=== PATIENT | female | born 1950 | race Caucasian/White ===

== ENCOUNTER → 2016-11-06 17:00 | Outpatient (CLI) | payer MEDICARE ==
[2015-01-25 12:52] VITALS: BMI 32.8
[~2016-11-06 17:00] MED LIST: ADVAIR 250/501 DISK INH; AMBIEN10 MG PO; FLUTICASONE PRO16 GM; GLIPIZIDE10 MG PO; INSULIN; LEVAQUIN500 MG; LEVAQUIN500 MG PO; MUCINEX600 MG PO; NORCO 10/325 TA1 TA1 PO; PROVENTIL/2.5 MG/3 M NEB; REQUIP5 MG PO; ROBAXIN-750750 MG PO; STERAPRED 5MG 125 MG PO
== END | disposition home or self-care (01) ==
LOC: D.MAMMO 15:15
DX: Z12.31 Encounter for screening mammogram for malignant neoplasm of breast (principal)

== ENCOUNTER 2019-04-06 18:30 | Emergency (ER) | payer MEDICARE ==
[~2019-04-06] VITALS: Ht 160 cm; Wt 72.7 kg
[2019-04-06 18:34] VITALS: Ht 160 cm; Wt 72.7 kg
[2019-04-06] MEDS ORDERED: GYNE-LOTRIMIN-745 GM VG (19:55)
[2019-04-06] MEDS ORDERED: DIFLUCAN150 MG PO (19:55)
[2019-04-06 20:32] VITALS: BP 196/85
== END 2019-04-06 20:15 | disposition home or self-care (01) ==
LOC: D.ER 18:30
DX: B37.2 Candidiasis of skin and nail (principal); B37.49 Other urogenital candidiasis; E11.9 Type 2 diabetes mellitus without complications

== ENCOUNTER 2019-07-01 22:47 | Inpatient (IN) | payer MEDICARE ==
[~2019-07-01] VITALS: Ht 160 cm; Wt 78.5 kg
[~2019-07-01 22:47] MED LIST changes: +DIFLUCAN150 MG PO; -FLUTICASONE PRO16 GM; +FLUTICASONE PRO16 GM INH; +GYNE-LOTRIMIN-745 GM VG
[2019-07-01 23:20] LABS: BASOPHILS 0.1 % (0-2); HEMATOCRIT 37.1 % (36.0-48.0); HEMOGLOBIN 11.8 g/dL (12-16); IMMATURE GRANULOCYTES 0.4 % (0-5); LYMPHOCYTES 18.6 % (15-50); MCH 28.9 pg (26.0-34.0); MCHC 31.8 g/dL (31.0-37.0); MCV 90.9 fL (80.0-100.0); MEAN PLATELET VOLUME 9.9 fL (7.4-10.4); NEUTROPHILS 71.9 % (40-80); RBC 4.08 10x6/uL (4.00-5.40); RDW 14.1 % (11.5-14.5); WBC 15.4 10x3/uL (4.8-10.8)
[2019-07-01 23:23] LABS: PLATELET COUNT 272 10x3/uL (130-400)
[2019-07-01 23:24] LABS: APPEARANCE HAZY (CLEAR); BILIRUBIN NEGATIVE (NEGATIVE); CALC OSMOLALITY 284 mosm/kg (275-300); CALCIUM 8.8 mg/dL (8.5-10.1); CARBON DIOXIDE 28.5 mmol/L (21.0-32.0); CHLORIDE - SERUM 102 mmol/L (98-107); COLOR YELLOW (YELLOW); CREATININE - SERUM 1.9 mg/dL (0.6-1.3); GLUCOSE 151 mg/dL (74-106); GLUCOSE NEGATIVE (NEGATIVE); KETONE NEGATIVE (NEGATIVE); NITRITE NEGATIVE (NEGATIVE); POTASSIUM - SERUM 4.4 mmol/L (3.5-5.1); PROTEIN 1+ mg/dL (NEGATIVE); SODIUM 138 mmol/L (136-145); UREA NITROGEN 29 mg/dL (7-18); UROBILINOGEN NORMAL (NORMAL); eGFR NON AFRICAN AMERICAN 28 mL/min (90-120)
[2019-07-01 23:25] LABS: BACTERIA FEW /hpf (NEGATIVE); EPITHELIAL CELLS 0-5 /hpf (0-5)
[2019-07-01 23:33] LABS: ALBUMIN 3.4 g/dL (3.4-5.0); ALKALINE PHOSPHATASE 116 U/L (46-116); ALT (SGPT) 22 U/L (10-68); BILIRUBIN - TOTAL 0.54 mg/dL (0.2-1.3); PROTEIN - SERUM 7.8 g/dL (6.4-8.2)
[2019-07-01 23:38] LABS: TROPONIN-I < 0.017 ng/mL (0.000-0.060)
[2019-07-02] VITALS (8 sets, daily range): BP systolic 188–236; BP diastolic 71–103; Ht 160 cm; Wt 78.5 kg
--- NOTE | 2019-07-02 02:00 | NUR ---
MD NOTIFIED OF BLOOD PRESSURE, NEW ORDER TO BE GIVEN.
--- NOTE | 2019-07-02 02:26 | NUR ---
RT TO BEDSIDE.
--- NOTE | 2019-07-02 02:55 | NUR ---
ROCEPHIN INFUSION STOPPED AT 0230
--- NOTE | 2019-07-02 03:47 | NUR ---
RECIEVED REPORT FROM RN IN ER. ARRIVED TO FLOOR ON STRETCHER ACCOMPANIED BY STAFF AT 0300. TRANSFERED SELF TO BED. ALERT AND ORIENTED X4. GOOD HISTORIAN. REPORTS GETTING DIZZY AND FALLING THREE TIMES IN THE PAST WEEK. STATES HER BOTTOM WAS SORE. 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 IV TO RIGHT FA WITH NS INFUSING AT 125/HR. NO REDNESS OR SWELLING TO SITE AND DSG INTACT. DENIES ANY NEEDS AT THIS TIME.
--- NOTE | 2019-07-02 07:15 | NUR ---
RECEIVED PT IN BED EYES CLOSED RESP UNLABORED SKIN W/D NAD NOTED
--- NOTE | 2019-07-02 14:22 | NUR ---
PATIENT HAD A PANIC ATTACK INSIDE MRI SCANNER. TOOK PATIENT BACK TO HER ROOM. SAW DR CHILDRESS AND INFORMED HIM THAT PATIENT REFUSED DUE TO A PANIC ATTACK. DR CHILDRESS TOLD PATIENT HE WOULD ORDER MEDS. PATIENT STILL REFUSED.
--- NOTE | 2019-07-02 19:13 | NUR ---
RECIEVED BEDSIDE SHIFT REPORT. ALERT AND ORIENTED X4. UP WITH ASSIST TO B/R. IV TO RIGHT FA WITH NS AT 75CC/HR. FALL PRECAUTIONS IN PLACE. DENIES ANY NEEDS. TELEMETRY IN PLACE.
--- NOTE | 2019-07-02 21:27 | NUR ---
C/O NOT HAVING NASAL SPRAY. REFUSED S/S INSULIN D/T TAKING GLUCOTROL THIS LATE. STATES SHE NORMALLY TAKES IT EARLIER IN THE DAY WITH A MEAL. WHEN GOING TO GIVE HER AN HS SNACK PT WAS IN TEARS. WHEN ASKED WHY SHE STATED SHE WOULD NOT BE ABLE TO BREATH TONIGHT WITH OUT HER MEDICINE. HAVE PAGED REY VELASQUEZ FOR ORDERS.
[2019-07-03 00:35] VITALS: BP 176/76
[2019-07-03 04:00] VITALS: BP 183/83
[2019-07-03 05:28] LABS: BASOPHILS 0.2 % (0-2); EOSINOPHILS 1.9 % (0-7); HEMATOCRIT 32.9 % (36.0-48.0); HEMOGLOBIN 10.4 g/dL (12-16); IMMATURE GRANULOCYTES 0.4 % (0-5); LYMPHOCYTES 17.1 % (15-50); MCH 28.5 pg (26.0-34.0); MCHC 31.6 g/dL (31.0-37.0); MCV 90.1 fL (80.0-100.0); NEUTROPHILS 73.4 % (40-80); PLATELET COUNT 234 10x3/uL (130-400); RBC 3.65 10x6/uL (4.00-5.40); RDW 14.4 % (11.5-14.5)
[2019-07-03 05:31] LABS: WBC 10.7 10x3/uL (4.8-10.8)
[2019-07-03 05:38] LABS: CALCIUM 8.5 mg/dL (8.5-10.1); CARBON DIOXIDE 26.8 mmol/L (21.0-32.0); CHOL - HDL RATIO 2.3 ratio (2.3-4.1); CREATININE - SERUM 1.5 mg/dL (0.6-1.3); POTASSIUM - SERUM 3.8 mmol/L (3.5-5.1)
--- NOTE | 2019-07-03 07:13 | NUR ---
PT RESTING COMFORTABLY IN BED, A/O X4, RESP EVEN AND NONLABORED ON 2L NC. RT FA INFUSING NS AT 75CC/HR. MONITOR SHOWING SR WITH RATE OF 85. PT DNEIES ANY NEEDS AT THIS TIME. CALL LIGHT IN REACH, BED ALARM ON, BEDSIDE RAILS X2, NAD NOTED, WILL CONITNUE PLAN OF CARE.
[2019-07-03 08:03] VITALS: BP 173/89
[2019-07-03 12:02] VITALS: BP 165/70
--- NOTE | 2019-07-03 13:34 | NUR ---
RT FA IV LEAKING. D/C IV WITH CATHETER TIP INTACT. NEW 20G IV STARTED TO LT AC X2 STICKS. IVPB ROCEPHIN HUNG AT THIS TIME. PT DENIES ANY NEEDS AT THIS TIME. CALL LIGHT IN REACH,NAD NOTED, WILL CONTINUE TO MONITOR.
[2019-07-03 16:36] VITALS: BP 165/70
--- NOTE | 2019-07-03 19:15 | NUR ---
RECEIVED REPORT, WILL ASSUME CARE OF PT, DENIES ANY NEEDS AT THIS TIME, BED IS LOW, SRX2, CALL LIGHT IN REACH, WILL CONTINUE PLAN OF CARE
[2019-07-03 20:00] VITALS: BP 185/71
--- NOTE | 2019-07-03 21:03 | NUR ---
PT WANTS TO BE SL-SAYS SHE DOESNT NEED ANY MORE FLUIDS NOW
--- NOTE | 2019-07-04 03:52 | NUR ---
I have reviewed this patient and I concur with the Shift Assessment completed by the Licensed Practical Nurse today this shift.
[2019-07-04 04:00] VITALS: BP 101/51
[2019-07-04 05:37] LABS: BASOPHILS 0.2 % (0-2); EOSINOPHILS 4.4 % (0-7); HEMOGLOBIN 9.9 g/dL (12-16); IMMATURE GRANULOCYTES 0.4 % (0-5); LYMPHOCYTES 17.6 % (15-50); MCH 28.2 pg (26.0-34.0); MCHC 30.9 g/dL (31.0-37.0); MCV 91.2 fL (80.0-100.0); MEAN PLATELET VOLUME 10.2 fL (7.4-10.4); MONOCYTES 7.4 % (2-11); PLATELET COUNT 235 10x3/uL (130-400); RBC 3.51 10x6/uL (4.00-5.40); RDW 14.3 % (11.5-14.5); WBC 9.8 10x3/uL (4.8-10.8)
[2019-07-04 05:44] LABS: ANION GAP 9.8 mmol/L (8-16); CALCIUM 8.7 mg/dL (8.5-10.1); CARBON DIOXIDE 29.1 mmol/L (21.0-32.0); CREATININE - SERUM 1.8 mg/dL (0.6-1.3); POTASSIUM - SERUM 3.9 mmol/L (3.5-5.1)
--- NOTE | 2019-07-04 08:05 | NUR ---
ALERT AND ORIENTED. 02 AT 2 L/M PER NC. UP AB SHAGGY. SL TO LEFT AC. REFUSES TO HAVE IV FLUID HOOKED UP. SR UP WITH CALL LIGHT IN REACH. WILL MONITOR
[2019-07-04 09:00] VITALS: BP 189/80
[2019-07-04 11:46] VITALS: BP 197/79
--- NOTE | 2019-07-04 12:11 | NUR ---
I have reviewed this patient and I concur with the Shift Assessment completed by the Licensed Practical Nurse today this shift.
--- NOTE | 2019-07-04 15:12 | NUR ---
OT NOTE: PT COMPLETED SUPINE TO SIT WITH SBA/CGA. PT COMPLETED SIT TO STAND WITH CGA. PT COMPLETED FACE WASH WITH SET UP. PT COMPLETED UE AROM AXS. PT NOT DIZZY WITH SUPINE TO SIT OR SIT TO STAND. THANK YOU, KELLY BURROWS
[2019-07-04 16:16] VITALS: BP 191/72
[2019-07-04 20:00] VITALS: BP 181/60
[2019-07-05] VITALS: BP 175/72
--- NOTE | 2019-07-05 00:36 | NUR ---
RESTING WITH EYES CLOSED, RESPERATIONS EVEN, NO S/S DISTRESS NOTED.
[2019-07-05 04:25] VITALS: BP 173/62
[2019-07-05 05:21] LABS: BASOPHILS 0.1 % (0-2); EOSINOPHILS 4.3 % (0-7); HEMATOCRIT 32.3 % (36.0-48.0); HEMOGLOBIN 10.1 g/dL (12-16); IMMATURE GRANULOCYTES 0.3 % (0-5); LYMPHOCYTES 17.9 % (15-50); MCH 28.3 pg (26.0-34.0); MCHC 31.3 g/dL (31.0-37.0); MCV 90.5 fL (80.0-100.0); MEAN PLATELET VOLUME 10.1 fL (7.4-10.4); NEUTROPHILS 68.4 % (40-80); PLATELET COUNT 238 10x3/uL (130-400); RBC 3.57 10x6/uL (4.00-5.40); RDW 14.1 % (11.5-14.5); WBC 8.9 10x3/uL (4.8-10.8)
[2019-07-05 05:46] LABS: ANION GAP 11.5 mmol/L (8-16); CALCIUM 8.8 mg/dL (8.5-10.1); CARBON DIOXIDE 28.5 mmol/L (21.0-32.0); CREATININE - SERUM 2.1 mg/dL (0.6-1.3)
--- NOTE | 2019-07-05 07:30 | NUR ---
ALERT AND ORIENTED. TELEMERTY SHOWS SR 93. LEFT AC SL. NOT USING . UP AB SHAGGY. DENIES ANY NEEDS. WILL MONITOR
[2019-07-05 08:00] VITALS: BP 195/82
[2019-07-05 12:00] VITALS: BP 182/76
--- NOTE | 2019-07-05 12:44 | NUR ---
I have reviewed this patient and I concur with the Shift Assessment completed by the Licensed Practical Nurse today this shift.
[2019-07-05 16:00] VITALS: BP 159/77
--- NOTE | 2019-07-05 16:23 | NUR ---
OT NOTE: PT COMPLETED ADL MOB WITH SPV/MOD I. PT COMPLETED BED MOB TASKS WITH MOD I. PT COMPLETED TOILETING TASKS WITH SPV/MOD I. THANK YOU, KELLY BURROWS
[2019-07-05 20:00] VITALS: BP 195/80
--- NOTE | 2019-07-05 21:05 | NUR ---
PT CAME OUT OF THE ROOM YELLING THAT SHE HAS NOT GOTTEN HER INSULIN. NOTIFIED PT THAT I CHECKED HER INSULIN EARLIER WHEN I CAME IN BECAUSE I RECIVED REPORT THAT DIABETIC AND ALSO HAVE A HBP. I TOLD PT I ALWAYS LIKE TO DO MY ASSESSMENT EARLIER BEFORE I ASSUME PT CARE DURING MY SHIFT. BT PT SOUNDED UPSET STATING I AM GIVEN ALL HER MEDICATIONS "WAY TOO LATE." MEANWHILE ALL HER MEDS WHERE GIVEN AT THE SCHEDULED TIME. PT ALSO STATES I SHOULD LEAVE HER AMBIEN IN HER ROOM FOR HER TO TAKE IT WHENEVER SHE WANTS TO. I NOTIFIED PT THAT I CANNOT DO THAT, AND SHE NEEDS TO PUSH THE CALL BOTTON TO NOTIFY ME WHENEVER SHE IS READY TO HER AMBIEN. PTR APPEARS CONTINUOUSLY AGGRAVATED, AFTER NUMEROUS EFFORTS OF CALMING HER. WILL CTM.
[2019-07-06] VITALS: BP 151/61
[2019-07-06 04:00] VITALS: BP 118/67
[2019-07-06 04:26] LABS: BASOPHILS 0.2 % (0-2); EOSINOPHILS 3.5 % (0-7); HEMATOCRIT 32.2 % (36.0-48.0); HEMOGLOBIN 10.2 g/dL (12-16); IMMATURE GRANULOCYTES 0.3 % (0-5); LYMPHOCYTES 16.8 % (15-50); MCH 28.7 pg (26.0-34.0); MCHC 31.7 g/dL (31.0-37.0); MCV 90.4 fL (80.0-100.0); MEAN PLATELET VOLUME 10.4 fL (7.4-10.4); MONOCYTES 8.8 % (2-11); NEUTROPHILS 70.4 % (40-80); PLATELET COUNT 261 10x3/uL (130-400); RBC 3.56 10x6/uL (4.00-5.40); RDW 14.1 % (11.5-14.5); WBC 10.8 10x3/uL (4.8-10.8)
[2019-07-06 05:06] LABS: ANION GAP 12.8 mmol/L (8-16); CALCIUM 8.6 mg/dL (8.5-10.1); CARBON DIOXIDE 28.6 mmol/L (21.0-32.0); POTASSIUM - SERUM 4.4 mmol/L (3.5-5.1)
--- NOTE | 2019-07-06 07:10 | NUR ---
REPORT RECEIVED FROM SECURITIES TRADER AND PATIENT CARE ASSUMED. PATIENT LAYING IN BED ON BACK, AWAKE, ALERT AND ORIENTED X 4. PATIENT DENIES ANY NEEDS OR PAIN. PATIENT IS STABLE AND VSS. WILL CONTINUE WITH PLAN OF CARE. SR UP X 2 BED IN LOW POSITION AND CALL LIGHT IN REACH.
[2019-07-06 08:45] VITALS: BP 162/76
[2019-07-06] MEDS ORDERED: LEVOFLOXACIN500 MG PO (10:11)
[2019-07-06] MEDS ORDERED: PROTONIX40 MG PO (10:11)
[2019-07-06] MEDS ORDERED: LISINOPRIL10 MG PO (10:12)
[2019-07-06] MEDS ORDERED: CARDIZEM60 MG PO (10:12)
[2019-07-06] MEDS ORDERED: LOPRESSOR25 MG PO (10:12)
[2019-07-06] MEDS ORDERED: PRAVACHOL20 MG PO (10:12)
--- NOTE | 2019-07-06 15:46 | NUR ---
OT NOTE: PT COMPLETED DYNAMIC STANDING AXS WITH SPV/MOD I. PT COMPLETED HYGIENE TASKS WITH SPV. PT ANXIOUS TO GO HOME. THANK YOU,KELLY BURROWS
--- NOTE | 2019-07-06 16:38 | MORECARE ---
CASE MANAGEMENT DISCHARGE SUMMARY PATIENT: ZHANG BOWMAN UNIT: [id number] ADM DATE: 07/02/19 AGE: 68 : 48 SEX: F ROOM/BED: D.0834 AUTHOR: CORTES HAUSER PHYSICIAN: REFERRING PHYSICIAN: JAKE CHILDRESS MD DATE OF SERVICE: 07/06/19 Discharge Plan Patient Name: ZHANG BOWMAN Facility: [facility]:[place] : 1950 Planned Disposition: Home Anticipated Discharge Date: 07/06/19 Discharge Date: 07/06/2019 Expected LOS: 4 Initial Reviewer: [email or web address] Initial Review Date: 07/06/2019 Generated: 07/06/19 5:37 pm DCPIA - Discharge Planning Initial Assessment Updated by [email or web address]: Ben Mahmood on 07/06/19 4:36 pm * Is the patient Alert and Oriented? Yes * How many steps to enter\exit or inside your home? * PCP DR. SERRA * Pharmacy [facility] * Preadmission Environment Home with Family * ADLs Independent * Equipment Nebulizer Oxygen * Other Equipment OXYGEN PRN (HOME ONLY) UNKNOWN PROVIDER * List name and contact numbers for known caregivers / representatives who currently or will assist patient after discharge: RAINA MARVIN BRODY, * Verbal permission to speak to the caregivers and representatives has been obtained from the patient. N/A * Community resources currently utilized None * Please name any agencies selected above. NONE * Additional services required to return to the preadmission environment? No * Can the patient safely return to the preadmission environment? Yes * Has this patient been hospitalized within the prior 30 days at any hospital? No Coverage Notice Reviewer: [id number] - Marine Chapa Notice Issued Date-Time: 07/02/2019 13:04 Notice Type: Medicare Outpatient Observation Notice Notice Delivered To: Patient Relationship to Patient: Iron Bender Name: Delivery Method: HAND - Hand Delivered Amy Days: Prior Verbal Notification: Recipient Understood Notice: Recipient Signature: Med Rec Note Co-signed by Attending: Coverage Notice Comment: Patient Name: ZHANG BOWMAN Page [phone] at 1638 All edits/amendments must be made on the electronic document DICTATION DATE: 07/06/191636 ACCOUNTANT MANAGER: KEVIN 07/06/191636 RPT#: [id number] DC DATE:07/06/19 STATUS: DIS IN [facility] [address] [place] [address] END OF REPORT
--- NOTE | 2019-07-06 16:47 | MORECARE ---
CASE MANAGEMENT DISCHARGE SUMMARY PATIENT: ZHANG BOWMAN UNIT: [id number] ADM DATE: 07/02/19 AGE: 68 : 48 SEX: F ROOM/BED: D.5997 AUTHOR: MURTAZA,DOC PHYSICIAN: REFERRING PHYSICIAN: JAKE CHILDRESS MD DATE OF SERVICE: 07/06/19 Discharge Plan Patient Name: ZHANG BOWMAN Facility: [facility]:[place] : 1950 Planned Disposition: Home Anticipated Discharge Date: 07/06/19 Discharge Date: 07/06/2019 Expected LOS: 4 Initial Reviewer: [email or web address] Initial Review Date: 07/06/2019 Generated: 07/06/19 5:46 pm Comments DCP- Discharge Planning Updated by [email or web address]: Ben Mahmood on 07/06/19 3:[address] Patient Name: ZHANG BOWMAN Admission Status: ER Accout number: [id number] Admission Date: 07-02-2019 : 1950 Admission Diagnosis: Attending: JAKE CHILDRESS Current LOS: 4 Anticipated DC Date: 07-06-2019 Planned Disposition: Home Primary Insurance: MEDICARE A & B Discharge Planning Comments: CM MET WITH PT IN ROOM TO DISCUSS DISCHARGE PLANNING AND NEEDS. PT REPORTS LIVING AT HOME INDEPENDENTLY WITH HER DAUGHTER AND SON IN LAW. PT HAS HOME OXYGEN PRN AND NEBULIZER WITH [facility] MEDICAL EQUIPMENT PROVIDER. PT HAS NO OUTSIDE SERVICES ASSISTING IN THE HOME. CM DISCUSSED AVAILABILITY OF HOME HEALTH, REHAB SERVICES AND MEDICAL EQUIPMENT. PT DENIES DISCHARGE NEEDS, REPORTS HER [facility] WILL PICK HER UP FOR DISCHARGE HOME. Supervisor Wool Shearing: Ben Mahmood DCPIA - Discharge Planning Initial Assessment Updated by [email or web address]: Ben Mahmood on 07/06/19 4:36 pm * Is the patient Alert and Oriented? Yes * How many steps to enter\exit or inside your home? * PCP DR. SERRA * Pharmacy [facility] * Preadmission Environment Home with Family * ADLs Independent * Equipment Nebulizer Oxygen * Other Equipment OXYGEN PRN (HOME ONLY) UNKNOWN PROVIDER * List name and contact numbers for known caregivers / representatives who currently or will assist patient after discharge: NOVEMBER MARVIN BRODY, * Verbal permission to speak to the caregivers and representatives has been obtained from the patient. N/A * Community resources currently utilized None * Please name any agencies selected above. NONE * Additional services required to return to the preadmission environment? No * Can the patient safely return to the preadmission environment? Yes * Has this patient been hospitalized within the prior 30 days at any hospital? No Coverage Notice Reviewer: [id number] Ana Chapa Notice Issued Date-Time: 07/02/2019 13:04 Notice Type: Medicare Outpatient Observation Notice Notice Delivered To: Patient Relationship to Patient: Counting Machine Operator Name: Delivery Method: HAND - Hand Delivered Amy Days: Prior Verbal Notification: Recipient Understood Notice: Recipient Signature: Med Rec Note Co-signed by Attending: Coverage Notice Comment: Last DP export: 07/06/19 3:38 Patient Name: ZHANG BOWMAN Page [phone] at 1647 All edits/amendments must be made on the electronic document DICTATION DATE: 07/06/191645 CHICK ROOM SUPERVISOR: KEVIN 07/06/191645 RPT#: [id number] DC DATE:07/06/19 STATUS: DIS IN [facility] [address] [place] [address] END OF REPORT
[2019-07-07 13:10] LABS: AEROBE ID Final report (())
== END 2019-07-06 15:31 | disposition home or self-care (01) | DRG 690 ==
LOC: D.ER 22:47 → OBSVTIME 07-02 01:46 → D.M2 07-02 01:46
PROVIDERS: Family Medicine; ADMIT Internal Medicine Nephrology; ATTEND Internal Medicine Nephrology
DX: N39.0 Urinary tract infection, site not specified (principal); N17.9 Acute kidney failure, unspecified; I16.9 Hypertensive crisis, unspecified; E11.9 Type 2 diabetes mellitus without complications; E66.01 Morbid (severe) obesity due to excess calories; Z68.30 Body mass index [BMI] 30.0-30.9, adult; Z86.73 Personal history of transient ischemic attack (TIA), and cerebral infarction without residual deficits

== ENCOUNTER 2020-03-04 12:27 | Emergency (ER) | payer MEDICARE ==
[~2020-03-04] VITALS: Ht 160 cm; Wt 61.4 kg
[~2020-03-04 12:27] MED LIST changes: +CARDIZEM60 MG PO; +LEVOFLOXACIN500 MG PO; +LISINOPRIL10 MG PO; +LOPRESSOR25 MG PO; +PRAVACHOL20 MG PO; +PROTONIX40 MG PO
[2020-03-04 12:31] VITALS: Ht 160 cm; Wt 61.4 kg
[2020-03-04] MEDS ORDERED: BACTRIM DS TAB1 EAC1 PO (13:43)
[2020-03-04] MEDS ORDERED: DIFLUCAN100 MG PO (13:43)
[2020-03-04 17:33] VITALS: BP 138/74
== END 2020-03-04 14:05 | disposition home or self-care (01) ==
LOC: D.ER 12:27
DX: B35.4 Tinea corporis (principal); E11.9 Type 2 diabetes mellitus without complications; N64.4 Mastodynia; Z79.84 Long term (current) use of oral hypoglycemic drugs

== ENCOUNTER 2020-03-19 23:23 | Inpatient (IN) | payer MEDICARE ==
[~2020-03-19] VITALS: Ht 160 cm; Wt 76.0 kg
[~2020-03-19 23:23] MED LIST changes: +BACTRIM DS TAB1 EAC1 PO; +DIFLUCAN100 MG PO
[2020-03-19] MEDS ORDERED: GLUCOPHAGE500 MG PO (23:40)
--- NOTE | 2020-03-19 23:50 | NUR ---
STROKE [facility] #[id number]
[2020-03-19 23:51] LABS: HEMATOCRIT 32.9 % (36.0-48.0); HEMOGLOBIN 10.6 g/dL (12-16); LYMPHOCYTES 24.2 % (15-50); MCH 27.7 pg (26.0-34.0); MCHC 32.2 g/dL (31.0-37.0); MCV 86.1 fL (80.0-100.0); NEUTROPHILS 70.6 % (40-80); PLATELET COUNT 249 10x3/uL (130-400); RBC 3.82 10x6/uL (4.00-5.40); RDW 15.4 % (11.5-14.5); WBC 8.5 10x3/uL (4.8-10.8)
--- NOTE | 2020-03-19 23:53 | NUR ---
AR SAVES CONTACTED.
[2020-03-20] VITALS (8 sets, daily range): BP systolic 154–190; BP diastolic 51–90; Ht 160 cm; Wt 76.0 kg
[2020-03-20 00:05] LABS: CALC OSMOLALITY 278 mosm/kg (275-300); CALCIUM 9.2 mg/dL (8.5-10.1); CARBON DIOXIDE 25.4 mmol/L (21.0-32.0); CHLORIDE - SERUM 102 mmol/L (98-107); CREATININE - SERUM 2.8 mg/dL (0.6-1.3); GLUCOSE 106 mg/dL (74-106); POTASSIUM - SERUM 5.6 mmol/L (3.5-5.1); SODIUM 135 mmol/L (136-145); UREA NITROGEN 38 mg/dL (7-18); eGFR NON AFRICAN AMERICAN 18 mL/min (90-120)
[2020-03-20 00:06] LABS: APTT 31.1 SECONDS (22.8-39.4); INR 0.88 (0.85-1.17); PROTIME 11.9 SECONDS (11.6-15.0)
[2020-03-20 00:21] LABS: ALBUMIN 3.4 g/dL (3.4-5.0); ALKALINE PHOSPHATASE 105 U/L (30-120); ALT (SGPT) 21 U/L (10-68); BILIRUBIN - TOTAL 0.19 mg/dL (0.2-1.3); CKMB 1.3 U/L (0.0-3.6); CREATINE KINASE 105 UL (21-215); MAGNESIUM - SERUM 2.2 mg/dL (1.8-2.4); PROTEIN - SERUM 7.2 g/dL (6.4-8.2); THYROID STIMULATING HORMONE 1.76 uIU/mL (0.36-3.74); TROPONIN-I < 0.017 ng/mL (0.000-0.060)
--- NOTE | 2020-03-20 01:35 | NUR ---
PT ASSISTED TO BEDSIDE COMMODE.
--- NOTE | 2020-03-20 01:56 | NUR ---
PT C/O ANTERIOR LEFT THIGH PAIN THAT IS WORSE ON MOVEMENT. DESCRIBES IT "WORSE THAN A CRAMP." DISTAL SMC INTACT W/PALPABLE PULSES. MD NOTIFIED. HE STATES HE WILL ORDER X-RAY TO BE DONE ON FLOOR.
--- NOTE | 2020-03-20 02:06 | NUR ---
PT ARRIVED ON UNIT VIA STRETCHER, ESCORTED BY ER NURSE. RADIOLOGY HERE WAITING TO PERFORM LEFT HIP XRAY.
--- NOTE | 2020-03-20 02:30 | NUR ---
PT BATHED AND GOWN PLACED. SHE HAS SEVERE YEAST INFECTION/ REDNESS UNDER BOTH BREASTS AND IN INGUINAL / RUDY AREAS. NYSTATIN HAS BEEN ORDERED. BED ALARM IN USE FOR SAFETY. GRIPPER SOCKS PLACED ON BLE.
[2020-03-20 04:19] LABS: BASOPHILS 0.2 % (0-2); EOSINOPHILS 1.1 % (0-7); HEMATOCRIT 33.6 % (36.0-48.0); HEMOGLOBIN 10.5 g/dL (12-16); IMMATURE GRANULOCYTES 0.1 % (0-5); LYMPHOCYTES 20.3 % (15-50); MCH 27.3 pg (26.0-34.0); MCHC 31.3 g/dL (31.0-37.0); MCV 87.5 fL (80.0-100.0); MEAN PLATELET VOLUME 9.4 fL (7.4-10.4); MONOCYTES 6.9 % (2-11); NEUTROPHILS 71.4 % (40-80); PLATELET COUNT 212 10x3/uL (130-400); RBC 3.84 10x6/uL (4.00-5.40); RDW 15.8 % (11.5-14.5); WBC 8.4 10x3/uL (4.8-10.8)
--- NOTE | 2020-03-20 04:20 | NUR ---
BED ALARM SOUNDING....UPON ENTERING ROOM FOUND PT BACK IN BED...SHE SAID SHE COULDN'T WAIT AND WALKED TO THE RESTROOM TO VOID. STATES THAT IT ISN'T HURTING MUCH IT DID AT HOME TO WALK.
[2020-03-20] MEDS ORDERED: BACTRIM DS TAB1 EAC1 PO (04:41)
[2020-03-20] MEDS ORDERED: NYSTATIN1 PWD TOPICAL (04:41)
[2020-03-20] MEDS ORDERED: GLYBURIDE5 M1 PO (04:42)
[2020-03-20 04:50] LABS: CALCIUM 9.1 mg/dL (8.5-10.1); CARBON DIOXIDE 26.5 mmol/L (21.0-32.0); CHOL - HDL RATIO 2.6 ratio (2.3-4.1); CREATININE - SERUM 2.7 mg/dL (0.6-1.3); LDL-HDL RATIO 1.4 ratio (1.5-3.5); MAGNESIUM - SERUM 2.1 mg/dL (1.8-2.4); PHOSPHOROUS 3.8 mg/dL (2.5-4.9); POTASSIUM - SERUM 5.5 mmol/L (3.5-5.1); THYROID STIMULATING HORMONE 1.56 uIU/mL (0.36-3.74)
--- NOTE | 2020-03-20 05:47 | NUR ---
CALLED DR SUGGS TO ADVISE OF ORDERED CONSULT...REVIEWED PT SYMPTOMS AND TEST RESULTS. RECEIVED ORDER FOR MRI OF BRAIN WITH AND WITHOUT CONTRAST.
--- NOTE | 2020-03-20 07:35 | NUR ---
PATIENT'S BP 190/80 MANUALLY. ELECTRIC MOTOR WINDERS ASSEMBLER [facility] CONSULTANT PAGED.
--- NOTE | 2020-03-20 07:49 | NUR ---
ALERT AND ORIENTED. LUNGS CLEAR BILATERALLY. HEART SOUNDS S1 AND S2 HEARD IN ALL VINSON. BOWEL SOUNDS ACTIVE X 4. IV TO RIGHT HAND PATENT WITHOUT REDNESS. IV TO LEFT AC SL PATENT WITHOUT REDNESS. TELEMETRY IN PLACE SHOWING 74 NORMAL SINUS. BED LOW. BED ALARM ON. CALL CAPELLAN AND PERSONAL ITEMS IN REACH. WILL CONTINUE TO MONITOR.
--- NOTE | 2020-03-20 08:14 | NUR ---
DATE PITTER PAGED SECOND TIME FOR PATIENT'S BP.
--- NOTE | 2020-03-20 09:11 | NUR ---
SPOKE WITH TAMI SENIOR ABOUT GETTING PATIENT PRN BREATHING TX. STATES COMING TO GIVE NWO.
--- NOTE | 2020-03-20 10:08 | NUR ---
Rehab Note- Acute Inpatient Rehab prescreen order received. The patient is a new admit and continues to have an acute work up at this time. Will continue to follow at this time. Thank you for this referral! Rosita White RN Clinical Liaison, [facility]
--- NOTE | 2020-03-20 11:00 | NUR ---
SPRAYER AUTO PARTS IN ROOM MADE AWARE THAT PATIENT UNABLE TO DO ECHO, MRI, OR DOPPLER, D/T PAIN. ORDERS PLACED FOR MENESES AND ONE TIME KAYEXELATE BUT NO PAIN MEDS ORDERED AT THIS TIME.
--- NOTE | 2020-03-20 11:05 | NUR ---
MENESES PLACED PER ORDER WITH [facility] MENESES AND UA SENT TO LAB.
--- NOTE | 2020-03-20 11:17 | NUR ---
PATIENT BP 199/67. PRODUCTION LINE SOLDERER MADE AWARE.
--- NOTE | 2020-03-20 11:20 | NUR ---
NEW ORDER RECEIVED FOR ONE TIME DOSE PAIN MEDICATION FOR PATIENT.
[2020-03-20 11:30] LABS: BILIRUBIN NEGATIVE (NEGATIVE); GLUCOSE NEGATIVE (NEGATIVE); KETONE NEGATIVE (NEGATIVE); NITRITE NEGATIVE (NEGATIVE); UROBILINOGEN NORMAL (NORMAL)
--- NOTE | 2020-03-20 12:26 | NUR ---
PATIENT'S BP 189/74. REY CAMP NOTIFIED. STATES CONSULT CARDIOLOGY.
[2020-03-20 12:34] LABS: CKMB 2.2 U/L (0.0-3.6); CREATINE KINASE 214 UL (21-215)
[2020-03-20 12:35] LABS: TROPONIN-I < 0.017 ng/mL (0.000-0.060)
[2020-03-20 14:52] LABS: CHOL - HDL RATIO 2.7 ratio (2.3-4.1); LDL-HDL RATIO 1.5 ratio (1.5-3.5)
--- NOTE | 2020-03-20 15:17 | NUR ---
SPOKE WITH DR SUGGS WHO STATES ADD MRI LUMBAR SPINE WITHOUT CONTRAST. ORDER PLACED AND MRI NOTIFIED.
--- NOTE | 2020-03-20 15:26 | NUR ---
PATIENT REFUSING MRI. STATES WILL DO CT BUT NOT MRI. MRI STATES WILL CALL DR SUGGS AND CALL NURSE BACK.
--- NOTE | 2020-03-20 15:57 | NUR ---
PATIENT RETURNED FROM CT AND CT STATES UNABLE TO PERFORM CT D/T ANXIETY. STATES PATIENT NEEDS ANXIETY MEDS IF MD WANTS CT. REY KAUR.
--- NOTE | 2020-03-20 16:10 | NUR ---
PATIENT CONTINUES TO REFUSE CT EVEN WITH IV BENDARYL PREMED. REY CHOWDHURY NOTIFIED.
[2020-03-20 17:54] LABS: CKMB 1.9 U/L (0.0-3.6); CREATINE KINASE 221 UL (21-215)
--- NOTE | 2020-03-20 17:57 | NUR ---
PATIENT NOW STATING TO DR SUGGS IN ROOM THAT IS NOT HAVING LEG PAIN ANYMORE.
[2020-03-20 18:07] LABS: TROPONIN-I < 0.017 ng/mL (0.000-0.060)
--- NOTE | 2020-03-20 20:30 | NUR ---
PT LYING IN BED WITHOUT DISTRESS, AOX4. IV RIGHT HAND INFUSING NS @ 75. DENIES PAIN. MENESES IN PLACE. REQUESTING SOMETHING FOR SLEEP AND BREATHING TRX. CALLED [facility] FOR TRX. CALLED [facility] FOR PT HOME MED AMBIEN. [facility] WOULD NOT ORDER STATING WE COULD NOT GIVE HER ANYTHING SEDATIVE AT THIS TIME. PT UPSET AND CRIED STATING SHE WILL NOT GET ANY SLEEP TONIGHT AND WOULD SPEAK WITH DR SERRA IN AM. FSBS 125, NO COVERAGE PER SS. DENIES OTHER NEEDS. CL IN REACH, WILL CTM
[2020-03-20 23:14] LABS: CKMB 1.7 U/L (0.0-3.6); CREATINE KINASE 157 UL (21-215)
[2020-03-20 23:15] LABS: TROPONIN-I < 0.017 ng/mL (0.000-0.060)
[2020-03-21] VITALS: BP 186/89
[2020-03-21 04:00] VITALS: BP 176/95
[2020-03-21 05:51] LABS: ANION GAP 11.3 mmol/L (8-16); CALCIUM 8.9 mg/dL (8.5-10.1); CARBON DIOXIDE 27.2 mmol/L (21.0-32.0); CREATININE - SERUM 2.2 mg/dL (0.6-1.3); PHOSPHOROUS 4.4 mg/dL (2.5-4.9)
[2020-03-21 06:05] LABS: POTASSIUM - SERUM 4.5 mmol/L (3.5-5.1)
--- NOTE | 2020-03-21 06:45 | NUR ---
RESTING IN BED WITH EYES CLOSED. RESPIRATIONS EVEN AND UNLABORED. NO S/S OF ACUTE DISTRESS NOTED. MENESES CATHETER PRESENT. IV TO RIGHT HAND, NS INFUSING @ 75ML/HR. SITE PATENT WITHOUT REDNESS OR SWELLING. ON TELEMETRY 84 SR. REDNESS UNDERNEATH BOTH BREASTS. DENIES ANY NEEDS AT THIS TIME. CALL LIGHT IN REACH. WILL CONTINUE TO MONITOR.
[2020-03-21 07:21] LABS: BASOPHILS 0.5 % (0-2); EOSINOPHILS 3.9 % (0-7); HEMATOCRIT 34.7 % (36.0-48.0); HEMOGLOBIN 10.8 g/dL (12-16); IMMATURE GRANULOCYTES 0.2 % (0-5); LYMPHOCYTES 30.9 % (15-50); MCH 28.1 pg (26.0-34.0); MCHC 31.1 g/dL (31.0-37.0); MEAN PLATELET VOLUME 9.7 fL (7.4-10.4); MONOCYTES 7.5 % (2-11); PLATELET COUNT 218 10x3/uL (130-400); RBC 3.85 10x6/uL (4.00-5.40); RDW 16.3 % (11.5-14.5)
[2020-03-21 07:22] LABS: MCV 90.1 fL (80.0-100.0); WBC 5.8 10x3/uL (4.8-10.8)
[2020-03-21 08:00] VITALS: BP 186/82
--- NOTE | 2020-03-21 09:00 | NUR ---
PATIENT IS WITHOUT NEEDS.CALL LIGHT IN REACH. DOOR OPEN
[2020-03-21 12:00] VITALS: BP 148/69
--- NOTE | 2020-03-21 13:10 | NUR ---
I have reviewed this patient and I concur with the Shift Assessment completed by the Licensed Practical Nurse today this shift.
--- NOTE | 2020-03-21 14:35 | NUR ---
OT NOTE: PT LIEING IN BED. CONTINUES TO REPORT PAIN IN L GROIN AREA WHICH INCREASES WITH MOVEMENT OF L LE. BED MOB WITH MIN ASSIST TO BRING L LE TO EOB. PAIN SEVERE IN SITTING POSITION; ASSISTED WITH SIT TO STAND WITH MIN ASSIST X 2 AND WALKER; AMBULATED A FEW FT WITH WALKER AND CONTINUED REPORT OF PAIN IN LATERAL SIDE OF L HIP AND GROIN AREA. MOD/MAX ASSIST WITH SIT TO SUPINE; SIMPLE GROOMING TASKS WITH SET UP. CINDY SHRESTHA, OTR/L [phone]
[2020-03-21 16:00] VITALS: BP 177/76
--- NOTE | 2020-03-21 18:32 | NUR ---
ALERT AND ORIENTED, SITTING UP IN CHAIR. NO C/O PAIN. NO S/S OF ACUTE DISTRESS NOTED. DENIES ANY NEEDS AT THIS TIME. CALL LIGHT IN REACH. WILL CONTINUE TO MONITOR.
[2020-03-21 20:00] VITALS: BP 168/69
--- NOTE | 2020-03-21 20:00 | NUR ---
PT SITTING UP IN BED WITHOUT DISTRESS, AOX4. IV RIGHT HAND INFUSING NS @ 30. UP AD SHAGGY TO BATHROOM WITHOUT WEAKNESS OR PAIN. DENIES NEEDS AT THIS TIME. CL IN REACH, WILL CTM
[2020-03-22] VITALS: BP 183/80
[2020-03-22 04:00] VITALS: BP 196/98
[2020-03-22 05:20] LABS: BASOPHILS 0.5 % (0-2); EOSINOPHILS 3.5 % (0-7); HEMATOCRIT 33.5 % (36.0-48.0); HEMOGLOBIN 10.6 g/dL (12-16); IMMATURE GRANULOCYTES 0.2 % (0-5); LYMPHOCYTES 34.5 % (15-50); MCH 27.7 pg (26.0-34.0); MCHC 31.6 g/dL (31.0-37.0); MEAN PLATELET VOLUME 9.3 fL (7.4-10.4); MONOCYTES 7.7 % (2-11); NEUTROPHILS 53.6 % (40-80); PLATELET COUNT 211 10x3/uL (130-400); RBC 3.83 10x6/uL (4.00-5.40); RDW 15.8 % (11.5-14.5); WBC 6.4 10x3/uL (4.8-10.8)
[2020-03-22 05:29] LABS: MCV 87.5 fL (80.0-100.0)
[2020-03-22 05:42] LABS: ANION GAP 8.7 mmol/L (8-16); CARBON DIOXIDE 29.4 mmol/L (21.0-32.0); CREATININE - SERUM 2.3 mg/dL (0.6-1.3); POTASSIUM - SERUM 4.1 mmol/L (3.5-5.1)
--- NOTE | 2020-03-22 08:09 | NUR ---
PT RESTING QUIETLY IN BED. RESP EVEN AND UNLABORED. DENIES PAIN AT THIS TIME. TELEMETRY IN PLACE AT THIS TIME. IV TO RIGHT HAND WITH NS @ 30ML/HR INFUSING VIA PUMP. SITE WITHOUT REDNESS OR EDEMA. AM MEDICATIONS ADMINISTERED WITH BP MEDICATIONS. DENIES FURTHER NEEDS AT THIS TIME. CL WITHIN REACH. ENCOURAGED TO CALL WITH NEEDS. CONTINUE POC
[2020-03-22 09:03] VITALS: BP 189/87
--- NOTE | 2020-03-22 12:55 | NUR ---
OT NOTE: PT DOING MUCH BETTER TODAY. REPORTED THAT SHE WAS NO LONGER HAVING PAIN TO R GROIN AREA. PERFORMED BED MOB WITHOUT ASSIST; AMB TO BATHROOM WITH WARDROBE SPECIALIST; TOILET TRANSFER WITH CGA; TOILET HYGIENE WITH SET UP; AMB TO SINK AND WAS ABLE TO PERFORM SEVERAL GROOMING TASKS IN STANDING WITH GOOD STATIC BALANCE AND MODERATE STANDING TOLERANCE. PT STATED THAT SHE WAS ATTEMPTING TO CALL HER DTR TO BRING HER DENTURES. PT AMB AROUND ROOM WHILE HOLDING ON TO IV POLE; FUNCTIONAL TRASNFERS WITH CGA; ABLE TO DEMONSTRATE UE/LE EXS WHILE SITTING UP IN CHAIR. CINDY SHRESTHA, OTR/L [phone]
[2020-03-22 13:00] VITALS: BP 172/84
--- NOTE | 2020-03-22 14:02 | MORECARE ---
CASE MANAGEMENT DISCHARGE SUMMARY PATIENT: ZHANG BOWMAN UNIT: [id number] ADM DATE: 03/20/20 AGE: 69 : 48 SEX: F ROOM/BED: D.2227 AUTHOR: CORTES HAUSER PHYSICIAN: REFERRING PHYSICIAN: MAGUI SERRA MD DATE OF SERVICE: 03/22/20 Discharge Plan Patient Name: ZHANG BOWMAN Facility: [facility]:[place] : 1950 Planned Disposition: Home Anticipated Discharge Date: Discharge Date: Expected LOS: Initial Reviewer: [email or web address] Initial Review Date: 03/22/2020 Generated: 03/22/20 3:01 pm Comments DCP- Discharge Planning Updated by [email or web address]: Nydia Reich on 03/22/20 1:[address] Patient Name: ZHANG BOWMAN Admission Status: ER Accout number: [id number] Admission Date: 03-20-2020 : 1950 Admission Diagnosis:WEAKNESS Attending: KURTIS SERRA Current LOS: 2 Anticipated DC Date: Planned Disposition: Home Primary Insurance: MEDICARE A & B Discharge Planning Comments: CM met with patient at bedside after explaining CM role and obtaining verbal consent. CM discussed availability / needs of home health, REHAB and medical equipment. PATIENT STATES PLANS TO DC TO HOME WITH HER FAMILY. HAS AN EXCELLENT SUPPORT SYSTEM. IS NOT INTERESTED IN HH OR REHAB. CM TO FOLLOW AND ASSIST NEEDED. Elementary Classroom Teacher: Nydia Reich DCPIA - Discharge Planning Initial Assessment Updated by [id number]: Nydia Reich on 03/22/20 2:02 pm * Is the patient Alert and Oriented? Yes * PCP MARYSE * [facility] * Preadmission Environment Home with Family * ADLs Independent * Other Equipment 02, [facility] WITH [facility] * Community resources currently utilized None * Additional services required to return to the preadmission environment? No * Can the patient safely return to the preadmission environment? Yes * Has this patient been hospitalized within the prior 30 days at any hospital? No Patient Name: ZHANG BOWMAN Page [id number] at 1402 All edits/amendments must be made on the electronic document DICTATION DATE: 03/22/201401 TRIM SAWYER: KEVIN 03/22/201401 RPT#: [id number] DC DATE: STATUS: ADM IN [facility] [address] [facility] [place] [address] END OF REPORT
--- NOTE | 2020-03-22 15:26 | EC ---
PATIENT:ZHANG BOWMAN DATE OF SERVICE: 03/20/20 SEX: F MEDICAL RECORD: [id number] DATE OF : [birth year] LOCATION:[facility] [place] AGE OF PATIENT: 69 ADMISSION DATE: 03/20/20 REFERRING PHYSICIAN: INTERPRETING PHYSICIAN: CAROL LAGUERRE MD ECHOCARDIOGRAM REPORT ECHO CHARGES 4 ECHO COMPLETE Date: 03/20/20 CLINICAL DIAGNOSIS: OLD CVA, NEW ONSET FOCAL DIFICITS, R/O CARDIOEMBOL ECHOCARDIOGRAPHIC MEASUREMENTS (adult normal given) AC root (d.<3.7cm) 2.5 cm LV Septum d (<1.2 cm> 0.8 cm Valve Excursion 1.4 cm LV Septum (systole) 2.0 cm Left Atria (s.<4.0cm> 3.4 cm LVPW d(<1.2cm) 1.1 cm RV (d.<2.3cm) 2.3 cm LVPW (sytole) 1.2 cm LV diastole(<5.6CM) 4.8 cm MV E-F(>70mm/sec) cm LV systole 3.2 cm LVOT Diameter 1.8 cm MV exc.(>10mm) cm Est.ejection fraction (50-75%) % DOPPLER: LVIT cm/sec A 90 cm/sec E 83 cm/sec LA cm/sec RVSP 21.7 mmHg LVOT 87 cm/sec AOP1/2T m/s Asc. Ao 146 cm/sec RVOT 102 cm/sec RA cm/sec PA 76 cm/sec AV Gradient Peak 8.5 mmHg AV Mean 5.1 mmHg AV Area 1.7 cm MV Gradient Peak 4.6 mmHg MV Mean 2.3 mmHg MV Area cm COMMENTS: Coil Cutter: 5 [facility] Hvac Sales Representative: 3 Dr. Garcia TAPE# PACS Pericardial Effusion N DATE OF SERVICE: 03/20/2020 Adequate 2D, color flow imaging, spectral Doppler and M-mode. No LVH. LV internal dimensions are normal. Wall motion is normal. EF is greater than or equal to equal to 55%. Aortic valve is tricuspid. No evidence of stenosis by Doppler interrogation. Left atrium is normal. Mitral valve shows no prolapse. Trace MR. Right-sided chambers grossly normal. Trace TR. TRANSINT:[id number] Voice Confirmation ID: [id number] DOCUMENT ID: [id number] ECHOCARDIOGRAM REPORT [id number] ZHANG BOWMAN,CAROL Simon MD at 1526 CC: [id number] DICTATION DATE: 03/20/20 1554 NURSING EDUCATION CONSULTANT: 03/20/20 2258 ADM IN [place] [id number] [place] [address]
[2020-03-22] MEDS ORDERED: PLAVIX75 MG PO (15:30)
[2020-03-22] MEDS ORDERED: HYDRALAZINE HCL50 MG PO (15:31)
[2020-03-22] MEDS ORDERED: NORVASC10 MG PO (15:31)
[2020-03-22] MEDS ORDERED: TOPROL XL50 MG PO (15:31)
[2020-03-22] MEDS ORDERED: LIPITOR40 MG PO (16:26)
--- NOTE | 2020-03-22 17:00 | NUR ---
PT PROVIDED DISCHARGE PAPERWORK WITH NEW PRESCRIPTIONS. DISCUSSED AT LENGTH NEW PRESCRIPTION, USE, DOSAGE AND TIMES TO TAKE MEDICATIONS. INFORMED PT OF PRESCRIPTIONS BEING SENT TO [facility] [address]. PT VOICED USING [facility], BUT SHE COULD GO TO [facility] AND ELEVATOR REPAIR MECHANIC MEDICATIONS. INFORMED OF APPOINTMENTS FOR FOLLOW UPS. IV DISCONTINUED TO RIGHT HAND, CATH INTACT
[2020-03-22 17:36] VITALS: BP 170/78
--- NOTE | 2020-03-22 17:38 | NUR ---
PT TAKEN OUT TO PRIVATE CAR VIA W/C WITH ALL PERSONAL POSESSIONS.
--- NOTE | 2020-03-22 18:26 | NUR ---
OT NOTE: PT COMPLETED FACE AND HAND HYGIENE WITH SETUP. PT COMPLETED UE AROM TOLERATED. [phone] THANK YOU,KELLY BURROWS
--- NOTE | 2020-03-23 17:00 | MORECARE ---
CASE MANAGEMENT DISCHARGE SUMMARY PATIENT: ZHANG BOWMAN UNIT: [id number] ADM DATE: 03/20/20 AGE: 69 : 48 SEX: F ROOM/BED: D.2227 AUTHOR: CORTES HAUSER PHYSICIAN: REFERRING PHYSICIAN: MAGUI SERRA MD DATE OF SERVICE: 03/23/20 Discharge Plan Patient Name: ZHANG BOWMAN Facility: [facility]:[place] : 1950 Planned Disposition: Home Anticipated Discharge Date: Discharge Date: 03/22/2020 Expected LOS: Initial Reviewer: [email or web address] Initial Review Date: 03/22/2020 Generated: 03/23/20 6:00 pm Comments DCP- Discharge Planning Updated by [email or web address]: Nydia Reich on 03/22/20 1:[address] Patient Name: ZHANG BOWMAN Admission Status: ER Accout number: [id number] Admission Date: 03-20-2020 : 1950 Admission Diagnosis:WEAKNESS Attending: KURTIS SERRA Current LOS: 2 Anticipated DC Date: Planned Disposition: Home Primary Insurance: MEDICARE A & B Discharge Planning Comments: CM met with patient at bedside after explaining CM role and obtaining verbal consent. CM discussed availability / needs of home health, REHAB and medical equipment. PATIENT STATES PLANS TO DC TO HOME WITH HER FAMILY. HAS AN EXCELLENT SUPPORT SYSTEM. IS NOT INTERESTED IN HH OR REHAB. CM TO FOLLOW AND ASSIST NEEDED. Stock Handler Floorperson: Nydia Reich DCPIA - Discharge Planning Initial Assessment Updated by [email or web address]: Nydia Reich on 03/22/20 2:02 pm * Is the patient Alert and Oriented? Yes * PCP MARYSE * [facility] * Preadmission Environment Home with Family * ADLs Independent * Other Equipment 02, [employer] [facility] * Community resources currently utilized None * Additional services required to return to the preadmission environment? No * Can the patient safely return to the preadmission environment? Yes * Has this patient been hospitalized within the prior 30 days at any hospital? No Last DP export: 03/22/20 1:02 p Patient Name: ZHANG BOWMAN Page [phone] at 1700 All edits/amendments must be made on the electronic document DICTATION DATE: 03/23/201699 FINISH MENDER: KEVIN 03/23/201699 RPT#: [id number] DC DATE:03/22/20 STATUS: DIS IN [facility] [address] [facility] [place] [address] END OF REPORT
== END 2020-03-22 17:46 | disposition home or self-care (01) | DRG 65 ==
LOC: D.ER 23:23 → D.MS 03-20 00:25
PROVIDERS: Emergency Medicine; Family Medicine; Internal Medicine Interventional Cardiology; ADMIT Emergency Medicine; ATTEND Emergency Medicine
DX: I63.81 Other cerebral infarction due to occlusion or stenosis of small artery (principal); E87.1 Hypo-osmolality and hyponatremia; N17.9 Acute kidney failure, unspecified; B37.2 Candidiasis of skin and nail; J44.9 Chronic obstructive pulmonary disease, unspecified; E78.5 Hyperlipidemia, unspecified; E11.40 Type 2 diabetes mellitus with diabetic neuropathy, unspecified; G89.29 Other chronic pain; M54.9 Dorsalgia, unspecified; E11.22 Type 2 diabetes mellitus with diabetic chronic kidney disease; I12.9 Hypertensive chronic kidney disease with stage 1 through stage 4 chronic kidney disease, or unspecified chronic kidney disease; N18.9 Chronic kidney disease, unspecified; G83.14 Monoplegia of lower limb affecting left nondominant side; D63.1 Anemia in chronic kidney disease; Z86.73 Personal history of transient ischemic attack (TIA), and cerebral infarction without residual deficits

== ENCOUNTER 2020-03-29 23:19 | Inpatient (IN) | payer MEDICARE ==
[~2020-03-29] VITALS: Ht 160 cm; Wt 77.5 kg
[~2020-03-29 23:19] MED LIST changes: +GLUCOPHAGE500 MG PO; +GLYBURIDE5 M1 PO; +HYDRALAZINE HCL50 MG PO; +LIPITOR40 MG PO; +NORVASC10 MG PO; +NYSTATIN1 PWD TOPICAL; +PLAVIX75 MG PO; +TOPROL XL50 MG PO
[2020-03-30] VITALS (8 sets, daily range): BP systolic 138–216; BP diastolic 62–90; BMI 30.3
[2020-03-30 00:03] LABS: HEMATOCRIT 32.6 % (36.0-48.0); HEMOGLOBIN 10.4 g/dL (12-16); LYMPHOCYTES 26.6 % (15-50); MCH 27.9 pg (26.0-34.0); MCHC 31.9 g/dL (31.0-37.0); MCV 87.4 fL (80.0-100.0); MEAN PLATELET VOLUME 9.3 fL (7.4-10.4); NEUTROPHILS 65.4 % (40-80); PLATELET COUNT 225 10x3/uL (130-400); RBC 3.73 10x6/uL (4.00-5.40); RDW 15.2 % (11.5-14.5); WBC 8.8 10x3/uL (4.8-10.8)
[2020-03-30 00:07] LABS: CALC OSMOLALITY 285 mosm/kg (275-300); CALCIUM 8.4 mg/dL (8.5-10.1); CARBON DIOXIDE 29.4 mmol/L (21.0-32.0); CHLORIDE - SERUM 102 mmol/L (98-107); GLUCOSE 156 mg/dL (74-106); POTASSIUM - SERUM 4.7 mmol/L (3.5-5.1); SODIUM 137 mmol/L (136-145); UREA NITROGEN 38 mg/dL (7-18); eGFR NON AFRICAN AMERICAN 26 mL/min (90-120)
[2020-03-30 00:12] LABS: APTT 25.1 SECONDS (22.8-39.4); INR 0.99 (0.85-1.17); PROTIME 13.1 SECONDS (11.6-15.0)
[2020-03-30 00:23] LABS: ALBUMIN 3.3 g/dL (3.4-5.0); ALKALINE PHOSPHATASE 87 U/L (30-120); ALT (SGPT) 28 U/L (10-68); BILIRUBIN - TOTAL 0.47 mg/dL (0.2-1.3); CKMB 0.7 U/L (0.0-3.6); CREATINE KINASE 86 UL (21-215); PROTEIN - SERUM 6.9 g/dL (6.4-8.2)
[2020-03-30 00:26] LABS: TROPONIN-I < 0.017 ng/mL (0.000-0.060)
[2020-03-30 00:33] LABS: BILIRUBIN NEGATIVE (NEGATIVE); GLUCOSE NEGATIVE (NEGATIVE); KETONE NEGATIVE (NEGATIVE); NITRITE POSITIVE (NEGATIVE); UROBILINOGEN NORMAL (NORMAL)
[2020-03-30 00:36] LABS: BACTERIA MANY /hpf (NEGATIVE); RED CELLS - URINE 0-5 /hpf (0-5)
[2020-03-30 00:37] LABS: EPITHELIAL CELLS 0-5 /hpf (0-5)
[2020-03-30 01:55] LABS: % SATURATION 9 % (15-55); IRON 31 ug/dl (35-150); TOTAL IRON BIND CAPACITY 317 ug/dl (260-445); UNSAT IRON BIND CAPACITY 286 ug/dl (150-375)
--- NOTE | 2020-03-30 04:00 | NUR ---
RECEIVED PT TO FLOOR VIA STRETCHER. PT AMBULATORY. WALKS TO BATHROOM INDEPENDENTLY. PT HAS VOIDING FREQUENCY. YEASTY RASH IN GROIN/PERIAREA. ALERT AND ORIENTED. BP LYING 216/73, SITTING 187/73, STANDING 189/75 - REPORTED BP'S TO REY KANG. GAVE APRESOLINE 10 MG IV PUSH AND RESTARTED HOME BP MEDS FOR AM. HISTORY AND HOME MEDS REVIEWED. NO OTHER NEEDS. WILL REASSESS AND CONTINUE TO MONITOR.
--- NOTE | 2020-03-30 10:10 | NUR ---
Rehab Note- Acute Inpatient REhab prescreen order received. THe patient has pending PT, OT, & ST Evals at this time. Will follow to see her functional level at this time. Thank you for this referral! Rosita White RN CLinical Liaison, [facility] Rehab
--- NOTE | 2020-03-30 12:26 | NUR ---
PATIENT IN BED EATING. DENIES PAIN OR NEEDS. ROOM DECLUTTERED PER PATIENT REQUEST. BED LOW POSITION, CALL LIGHT IN REACH. WILL CONTINUE TO MONITOR.
--- NOTE | 2020-03-30 15:38 | NUR ---
OT NOTE: PT COMPLETED SUPINE TO SIT WITH SBA. PT COMPLETED SIT TO STAND WITH CGA. PT COMPLETED UE AROM WITH FUNCTIONAL TASKS. THANK YOU,KELLY BURROWS
--- NOTE | 2020-03-30 15:55 | NUR ---
REHAB PRESCREENING Rehab referral received and chart reviewed. PT and OT have evaluated this patient. I spoke with Ms. Guillen regarding rehab for strengthening and conditioning. She was very clear that she felt she was doing pretty good and was not interested in rehab. Thank you for this referral! Oralia Miranda, SUPERINTENDENT TESTS Rehab PD
[2020-03-31] VITALS: BP 186/66
[2020-03-31 04:00] VITALS: BP 180/78
[2020-03-31 06:35] LABS: BASOPHILS 0.2 % (0-2); HEMATOCRIT 31.9 % (36.0-48.0); HEMOGLOBIN 9.7 g/dL (12-16); IMMATURE GRANULOCYTES 0.1 % (0-5); LYMPHOCYTES 24.1 % (15-50); MCH 27.2 pg (26.0-34.0); MCHC 30.4 g/dL (31.0-37.0); MEAN PLATELET VOLUME 9.7 fL (7.4-10.4); MONOCYTES 6.8 % (2-11); NEUTROPHILS 64.8 % (40-80); PLATELET COUNT 228 10x3/uL (130-400); RBC 3.57 10x6/uL (4.00-5.40); RDW 16.2 % (11.5-14.5); WBC 8.4 10x3/uL (4.8-10.8)
[2020-03-31 06:51] LABS: MCV 89.4 fL (80.0-100.0)
[2020-03-31 07:04] LABS: ALBUMIN 2.8 g/dL (3.4-5.0); ANION GAP 9.7 mmol/L (8-16); BILIRUBIN - TOTAL 0.27 mg/dL (0.2-1.3); CALCIUM 7.7 mg/dL (8.5-10.1); CARBON DIOXIDE 28.1 mmol/L (21.0-32.0); CREATININE - SERUM 1.9 mg/dL (0.6-1.3); POTASSIUM - SERUM 4.8 mmol/L (3.5-5.1); PROTEIN - SERUM 5.9 g/dL (6.4-8.2)
--- NOTE | 2020-03-31 09:15 | NUR ---
PT SITTING UP IN BED, A&O X4. DENIES PAIN. PIV IN RIGHT FOREARM, PATENT, NO REDNESS OR SWELLING. O2 VIA NC 2L, SAT 97%. PT ABLE TO AMBULATE WITH NO ASSIST. TELEMETRY IN PLACE, 100 SR. PT HAS REDNESS AND YEAST IN LOWER PERIAREA, APPLIED NYST POWDER. PT HAS BRUISES ON UPPER EXTREMITIES. EDUCATED PT ON NEED FOR STOOL SAMPLE, PROVIDED COLLECTION HAT. EDUCATED PT ON CL AND NEEDS, VERBALIZED UNDERSTANDING. BED LOW, RAILS X2. CL IN REACH. WILL CONTINUE TO MONITOR.
[2020-03-31 09:49] VITALS: BP 162/66
--- NOTE | 2020-03-31 12:15 | NUR ---
PT SITTING UP IN BED, REPORTS STOOL SPEICMEN IN COLLECTION HAT, COLLECTED AND SENT TO LAB. PT DENIES FURTHER NEEDS.
[2020-03-31 13:58] VITALS: BP 171/69
--- NOTE | 2020-03-31 15:00 | NUR ---
PERFORMED PERICARE, APPLIED NYST POWDER TO PERIAREA. PT DENIES FURTHER NEEDS.
[2020-03-31 18:04] VITALS: BP 160/62
[2020-03-31 20:56] VITALS: BP 187/73
--- NOTE | 2020-03-31 23:41 | NUR ---
BP 183/70 - GAVE APRESOLINE 10 MG IV PUSH. NO OTHER NEEDS. ASSESSMENT COMPLETE PER FLOW-SHEET. WILL REASSESS AND CONTINUE TO MONITOR.
[2020-04-01 00:01] VITALS: BP 183/70
[2020-04-01 04:12] VITALS: BP 170/64
[2020-04-01 07:06] LABS: BASOPHILS 0.4 % (0-2); EOSINOPHILS 3.1 % (0-7); HEMATOCRIT 32.6 % (36.0-48.0); IMMATURE GRANULOCYTES 0.3 % (0-5); MCH 27.2 pg (26.0-34.0); MCHC 30.7 g/dL (31.0-37.0); MCV 88.8 fL (80.0-100.0); MEAN PLATELET VOLUME 9.5 fL (7.4-10.4); MONOCYTES 7.2 % (2-11); PLATELET COUNT 209 10x3/uL (130-400); RBC 3.67 10x6/uL (4.00-5.40)
[2020-04-01 07:34] LABS: ALBUMIN 2.9 g/dL (3.4-5.0); ANION GAP 11.9 mmol/L (8-16); BILIRUBIN - TOTAL 0.26 mg/dL (0.2-1.3); CALCIUM 8.3 mg/dL (8.5-10.1); CARBON DIOXIDE 25.2 mmol/L (21.0-32.0); CREATININE - SERUM 1.8 mg/dL (0.6-1.3); MAGNESIUM - SERUM 1.9 mg/dL (1.8-2.4); POTASSIUM - SERUM 4.1 mmol/L (3.5-5.1); PROTEIN - SERUM 6.5 g/dL (6.4-8.2)
[2020-04-01 08:43] VITALS: BP 174/67
[2020-04-01 09:37] LABS: EOSINOPHILS 9 % (0-7); LYMPHOCYTES 10 % (15-50); NEUTROPHILS 78 % (40-80); PLATELET ESTIMATE NORMAL; POIKILOCYTOSIS OCC; POLYCHROMASIA OCC; ROULEAUX OCC
--- NOTE | 2020-04-01 11:45 | NUR ---
ASSESSMENT PER FLOW SHEET. PATIENT IS WITHOUT DISTRESS.CALL LIGHT IN REACH
[2020-04-01 13:17] VITALS: BP 148/65
[2020-04-01 18:52] VITALS: BP 152/63
[2020-04-01 22:01] VITALS: BP 168/57
[2020-04-02 03:55] VITALS: BP 193/71
[2020-04-02 05:11] LABS: BASOPHILS 0.3 % (0-2); EOSINOPHILS 4.6 % (0-7); HEMATOCRIT 31.8 % (36.0-48.0); HEMOGLOBIN 9.9 g/dL (12-16); IMMATURE GRANULOCYTES 0.1 % (0-5); MCH 27.4 pg (26.0-34.0); MCHC 31.1 g/dL (31.0-37.0); MCV 88.1 fL (80.0-100.0); MEAN PLATELET VOLUME 9.5 fL (7.4-10.4); MONOCYTES 8.2 % (2-11); NEUTROPHILS 63.8 % (40-80); PLATELET COUNT 211 10x3/uL (130-400); RBC 3.61 10x6/uL (4.00-5.40)
[2020-04-02 05:31] LABS: ALBUMIN 2.7 g/dL (3.4-5.0); ANION GAP 10.1 mmol/L (8-16); BILIRUBIN - TOTAL 0.35 mg/dL (0.2-1.3); CALCIUM 8.1 mg/dL (8.5-10.1); CARBON DIOXIDE 27.9 mmol/L (21.0-32.0); CREATININE - SERUM 1.7 mg/dL (0.6-1.3); MAGNESIUM - SERUM 1.9 mg/dL (1.8-2.4); PROTEIN - SERUM 6.3 g/dL (6.4-8.2)
[2020-04-02 06:01] VITALS: BP 159/51
[2020-04-02 09:10] VITALS: BP 175/63
--- NOTE | 2020-04-02 09:51 | EC ---
PATIENT:ZHANG BOWMAN DATE OF SERVICE: 03/30/20 SEX: F MEDICAL RECORD: [id number] DATE OF : [birth year] LOCATION:D.[facility] AGE OF PATIENT: 69 ADMISSION DATE: 03/30/20 REFERRING PHYSICIAN: INTERPRETING PHYSICIAN: CAROL LAGUERRE MD ECHOCARDIOGRAM REPORT ECHO CHARGES 5 ECHO LIMITED Date: 03/30/20 CLINICAL DIAGNOSIS: PRESYNCOPE ECHOCARDIOGRAPHIC MEASUREMENTS (adult normal given) AC root (d.<3.7cm) 0 cm LV Septum d (<1.2 cm> 0 cm Valve Excursion 0 cm LV Septum (systole) 0 cm Left Atria (s.<4.0cm> 0 cm LVPW d(<1.2cm) 0 cm RV (d.<2.3cm) 0 cm LVPW (sytole) 0 cm LV diastole(<5.6CM) 0 cm MV E-F(>70mm/sec) 0 cm LV systole 0 cm LVOT Diameter 0 cm MV exc.(>10mm) 0 cm Est.ejection fraction (50-75%) % DOPPLER: LVIT 0 cm/sec A 0 cm/sec E 0 cm/sec LA 0 cm/sec RVSP 14.6 mmHg LVOT 0 cm/sec AOP1/2T m/s Asc. Ao 0 cm/sec RVOT 0 cm/sec RA 0 cm/sec PA 0 cm/sec AV Gradient Peak 0 mmHg AV Mean 0 mmHg AV Area 0 cm MV Gradient Peak 0 mmHg MV Mean 0 mmHg MV Area 0 cm COMMENTS: Bone Worker: [facility] Housekeeping Staff: 3 Dr. Garcia TAPE# PACS Pericardial Effusion N DATE OF SERVICE: Limited study includes 2D, color flow. Grossly LVH is present. LV internal dimensions are normal. Wall motion is normal. EF is greater than or equal to 55%. Aortic valve is tricuspid with good valve excursion. No significant AI. Left atrium grossly appears normal. Mitral valve shows no prolapse. Trace MR. Right-sided chambers are grossly normal. Mild TR. ECHOCARDIOGRAM REPORT [id number] ZHANG BOWMAN TRANSINT:[id number] Voice Confirmation ID: [id number] DOCUMENT ID: [id number] CAROL LAGUERRE MD at 0951 CC: [id number] DICTATION DATE: 03/30/20 1128 SUPERVISOR TRANSFERRING AND BOXING: 03/30/202124 ADM IN [facility] [address] [id number]
[2020-04-02 11:54] VITALS: BP 117/69
--- NOTE | 2020-04-02 12:35 | NUR ---
PATIENT BACK TO BED FROM BATHROOM. DENIES PAIN OR NEEDS AT THIS TIME. BED LOW POSITION, CALL LIGHT IN REACH, WILL CONTINUE TO MONITOR.
[2020-04-02 13:25] VITALS: Ht 160 cm; Wt 77.5 kg
--- NOTE | 2020-04-02 13:37 | NUR ---
NEW IV STARTED TO THE RIGHT ARM, 22 G. REMOVED THE OLD IV FROM THE RIGHT ARM. THE CALL LIGHT IS WITHIN REACH.
[2020-04-02 16:22] VITALS: BP 164/67
[2020-04-02 20:00] VITALS: BP 151/67
--- NOTE | 2020-04-02 22:08 | NUR ---
OT NOTE:(AM) PT COMPLETED SUPINE TO SIT WITH CGA. PT COMPLETED SIT TO STAND WITH CGA. PT COMPLETED ADL MOB WITH CGA. PT COMPLETED FACE AND HAND HYGIENE WITH SETUP AT EOB.(PM) PT COMPLETED BED MOB TASKS WITH CGA/SBA. [phone] THANK YOU,KELLY BURROWS
[2020-04-03] VITALS: BP 189/67
--- NOTE | 2020-04-03 02:59 | NUR ---
REC'D WALKING ROUNDS CHGE OF SHIFT IN BED WATCHING TV.HS MEDS GIVEN REQUESTED.STATES WANT MY SNACK NOW EXPLAINED SOON GLUCOSE METER AVAILABLE WILL GET FSBS THEN SNACK SO CAN GET ACCURATE READING. STATES WANT MY SNACK NOW,CURSED SECOND NURSE.STATES YOU'RE LYING.EXPLAINED THAT'S NOT TRUE.VERY ARGUMENTATIVE.WILL CONTINUE TO MONITOR FOR ANY CHGES AND FOLLOW CURRENT PLAN OF CARE.
[2020-04-03 04:00] VITALS: BP 107/44
[2020-04-03 05:37] LABS: BASOPHILS 0.2 % (0-2); EOSINOPHILS 2.4 % (0-7); HEMATOCRIT 30.7 % (36.0-48.0); HEMOGLOBIN 9.6 g/dL (12-16); IMMATURE GRANULOCYTES 0.4 % (0-5); LYMPHOCYTES 12.6 % (15-50); MCH 27.6 pg (26.0-34.0); MCHC 31.3 g/dL (31.0-37.0); MCV 88.2 fL (80.0-100.0); MEAN PLATELET VOLUME 9.6 fL (7.4-10.4); MONOCYTES 6.3 % (2-11); NEUTROPHILS 78.1 % (40-80); PLATELET COUNT 209 10x3/uL (130-400); RBC 3.48 10x6/uL (4.00-5.40)
[2020-04-03 05:40] LABS: WBC 9.6 10x3/uL (4.8-10.8)
[2020-04-03 05:54] LABS: ALBUMIN 2.7 g/dL (3.4-5.0); ANION GAP 11.6 mmol/L (8-16); BILIRUBIN - TOTAL 0.31 mg/dL (0.2-1.3); CARBON DIOXIDE 26.3 mmol/L (21.0-32.0); CREATININE - SERUM 1.8 mg/dL (0.6-1.3); MAGNESIUM - SERUM 1.8 mg/dL (1.8-2.4); POTASSIUM - SERUM 3.9 mmol/L (3.5-5.1); PROTEIN - SERUM 6.2 g/dL (6.4-8.2)
--- NOTE | 2020-04-03 07:30 | NUR ---
PATIENT IN ROOM SLEEPING. EASY TO AROUSE. DENIES PAIN OR NEEDS. BED LOW POSITION, CALL LIGHT IN REACH, WILL CONTINUE TO MONITOR.
[2020-04-03 08:00] VITALS: BP 190/83
--- NOTE | 2020-04-03 13:08 | MORECARE ---
CASE MANAGEMENT DISCHARGE SUMMARY PATIENT: ZHANG BOWMAN UNIT: [id number] ADM DATE: 03/30/20 AGE: 69 : 48 SEX: F ROOM/BED: D.2204 AUTHOR: MURTAZADOC PHYSICIAN: REFERRING PHYSICIAN: CAROL ELMORE MD DATE OF SERVICE: 04/03/20 Discharge Plan Patient Name: ZHANG BOWMAN Facility: [facility]:[place] : 1950 Planned Disposition: Home or Self Care Anticipated Discharge Date: Discharge Date: Expected LOS: Initial Reviewer: [email or web address] Initial Review Date: 03/30/2020 Generated: 04/03/20 2:07 pm DCPIA - Discharge Planning Initial Assessment Updated by [email or web address]: Lexis Dias on 04/03/20 1:05 pm * Is the patient Alert and Oriented? Yes * How many steps to enter\exit or inside your home? * PCP MARYSE * Pharmacy [facility] * Preadmission Environment Home with Family * ADLs Independent * Equipment Nebulizer None Ostomy Supplies Other Oxygen * Other Equipment PATIENT HAS O2 CONCENTRATOR ONLY NO PORTABLE * List name and contact numbers for known caregivers / representatives who currently or will assist patient after discharge: NOVEMBER () [phone] * Verbal permission to speak to the caregivers and representatives has been obtained from the patient. N/A * Community resources currently utilized None * Additional services required to return to the preadmission environment? Yes * Can the patient safely return to the preadmission environment? No * Has this patient been hospitalized within the prior 30 days at any hospital? Yes Coverage Notice Reviewer: [email or web address] Ana Dias Notice Issued Date-Time: 04/03/2020 12:55 Notice Type: IM Discharge Notice Notice Delivered To: Patient Relationship to Patient: Controller Repairer And Tester Name: Delivery Method: HAND - Hand Delivered Amy Days: Prior Verbal Notification: Recipient Understood Notice: Yes Recipient Signature: Yes Med Rec Note Co-signed by Attending: Coverage Notice Comment: IMM SERVED AND EXPLAINED Reviewer: [email or web address] Ana Dias Notice Issued Date-Time: 04/03/2020 12:55 Notice Type: Patient Choice Letter Notice Delivered To: Patient Relationship to Patient: Controller Repairer And Tester Name: Delivery Method: HAND - Hand Delivered Amy Days: Prior Verbal Notification: Recipient Understood Notice: Yes Recipient Signature: Yes Med Rec Note Co-signed by Attending: Coverage Notice Comment: ARIK WITH INPATIENT REHAB AT [facility] Patient Name: ZHANG BOWMAN Page [phone] at 1308 All edits/amendments must be made on the electronic document DICTATION DATE: 04/03/20 1307 A AND P TECHNICIAN: KEVIN 04/03/20 1307 RPT#: [id number] DC DATE: STATUS: ADM IN [facility] [address] [place] [address] END OF REPORT
--- NOTE | 2020-04-03 13:16 | MORECARE ---
CASE MANAGEMENT DISCHARGE SUMMARY PATIENT: ZHANG BOWMAN UNIT: [id number] ADM DATE: 03/30/20 AGE: 69 : 48 SEX: F ROOM/BED: D.2204 AUTHOR: MURTAZA,DOC PHYSICIAN: REFERRING PHYSICIAN: CAROL ELMORE MD DATE OF SERVICE: 04/03/20 Discharge Plan Patient Name: ZHANG BOWMAN Facility: [facility]:[place] : 1950 Planned Disposition: Home or Self Care Anticipated Discharge Date: Discharge Date: Expected LOS: Initial Reviewer: [email or web address] Initial Review Date: 03/30/2020 Generated: 04/03/20 2:16 pm Comments DCP- Discharge Planning Updated by [email or web address]: Lexis Dias on 04/03/20 12:[address] Patient Name: ZHANG BOWMAN Admission Status: ER Accout number: [id number] Admission Date: 03-30-2020 : 1950 Admission Diagnosis: Attending: YANELIS Current LOS: 4 Anticipated DC Date: Planned Disposition: Home or Self Care Primary Insurance: MEDICARE A & B Discharge Planning Comments: CM met with patient to complete initial dc planning assessment. CM educated patient on the CM role and verbal consent given by patient to complete assessment. Patient lives at home & her adult daughter and her family live with her. She stated that she was independent with her care. She discharged from [facility] last week and stated that her legs wouldn't work and that is why she came back. I encouraged her to consider Inpatient rehab, she had a CVA. She is agreeable to it, ARIK signed. At discharge patient plans to go to inpatient rehab at [facility] and feels this is a safe discharge. CM discussed availability of home health, rehab services, and medical equipment. Patient stated that she has a nebulizer and a O2 concentrator that she wears at home and at night when needed at 2L. She was mildly SOB when speaking with her and will need a walk test prior to DC to see if she needs portable O2. ARIK signed for [facility]. She stated that she does not have any other DME. [facility] served and explained. Patient denied known discharge needs at this time. CM will continue to follow and will assist as needed with dc plans/needs. Welding Machine Operator Electron Beam: Lexis Dias DCPIA - Discharge Planning Initial Assessment Updated by [email or web address]: Lexis Dias on 04/03/20 1:05 pm * Is the patient Alert and Oriented? Yes * How many steps to enter\exit or inside your home? * PCP MARYSE * Pharmacy [facility] * Preadmission Environment Home with Family * ADLs Independent * Equipment Nebulizer None Ostomy Supplies Other Oxygen * Other Equipment PATIENT HAS O2 CONCENTRATOR ONLY NO PORTABLE * List name and contact numbers for known caregivers / representatives who currently or will assist patient after discharge: NOVEMBER (DAUGHTER) [phone] * Verbal permission to speak to the caregivers and representatives has been obtained from the patient. N/A * Community resources currently utilized None * Additional services required to return to the preadmission environment? Yes * Can the patient safely return to the preadmission environment? No * Has this patient been hospitalized within the prior 30 days at any hospital? Yes Coverage Notice Reviewer: [email or web address] Ana Dias Notice Issued Date-Time: 04/03/2020 12:55 Notice Type: IM Discharge Notice Notice Delivered To: Patient Relationship to Patient: Branding Machine Tender Name: Delivery Method: HAND - Hand Delivered Amy Days: Prior Verbal Notification: Recipient Understood Notice: Yes Recipient Signature: Yes Med Rec Note Co-signed by Attending: Coverage Notice Comment: IMM SERVED AND EXPLAINED Reviewer: [id number] Dias Notice Issued Date-Time: 04/03/2020 12:55 Notice Type: Patient Choice Letter Notice Delivered To: Patient Relationship to Patient: Branding Machine Tender Name: Delivery Method: HAND - Hand Delivered Amy Days: Prior Verbal Notification: Recipient Understood Notice: Yes Recipient Signature: Yes Med Rec Note Co-signed by Attending: Coverage Notice Comment: ARIK WITH INPATIENT REHAB AT [facility] Last DP export: 04/03/20 12:07 p Patient Name: ZHANG BOWMAN Page [phone] at 1316 All edits/amendments must be made on the electronic document DICTATION DATE: 04/03/20 1316 BATTERY ASSEMBLER DRY CELL: KEVIN 04/03/20 1316 RPT#: [id number] DC DATE: STATUS: ADM IN [facility] [address] [place] [id number] END OF REPORT
[2020-04-03 13:31] VITALS: BP 153/65
--- NOTE | 2020-04-03 14:53 | NUR ---
OT NOTE: PERFORMED BED MOB WITH MIN ASSIST; EOB SITTING FOR APPROX 5 MIN. SIT TO STAND WITH MIN ASSIST; FUNCTIONAL TRANSFERS WITH MIN ASSIST. PT SOB AND VERY FATIGUED FOLLOWING TMTM TODAY. CINDY SHRESTHA, OTR/L [phone]
[2020-04-03] MEDS ORDERED: IPRAT-ALBUT 0.5-3 ML INH ×2 (15:08→15:09)
[2020-04-03] MEDS ORDERED: HUMALOG 30100 UNITS/ SC (15:10)
--- NOTE | 2020-04-03 16:05 | NUR ---
OT NOTE: PT COMPLETED SUPINE TO SIT WITH CGA. PT COMPLETED EOB SITTING WITH SBA. PT COMPLETED UE AROM TOLERATED FOR INCREASED AX TOLERANCE. FPT COMPLETED UB HYGIENE TASKS WITH SETUP. [phone] THANK YOU,KELLY BURROWS
--- NOTE | 2020-04-03 17:00 | NUR ---
DISCHARGE INSTRUCTIONS COMPLETE. IV CATH REMOVED, TIP INTACT. BELONGINGS TAKEN. PATIENT LEFT UNIT VIA WHEELCHAIR TO REHAB.
--- NOTE | 2020-04-05 15:13 | MORECARE ---
CASE MANAGEMENT DISCHARGE SUMMARY PATIENT: ZHANG BOWMAN UNIT: [id number] ADM DATE: 03/30/20 AGE: 69 : 46 SEX: F ROOM/BED: D.2204 AUTHOR: MURTAZA,DOC PHYSICIAN: REFERRING PHYSICIAN: CAROL ELMORE MD DATE OF SERVICE: 04/05/20 Discharge Plan Patient Name: ZHANG BOWMAN Facility: [facility]:[place] : 1950 Planned Disposition: Home or Self Care Anticipated Discharge Date: Discharge Date: 04/03/2020 Expected LOS: Initial Reviewer: [email or web address] Initial Review Date: 03/30/2020 Generated: 04/05/20 4:12 pm Comments DCP- Discharge Planning Updated by [email or web address]: Lexis Dias on 04/03/20 12:[address] Patient Name: ZHANG BOWMAN Admission Status: ER Accout number: [id number] Admission Date: 03-30-2020 : 1950 Admission Diagnosis: Attending: YANELIS Current LOS: 4 Anticipated DC Date: Planned Disposition: Home or Self Care Primary Insurance: MEDICARE A & B Discharge Planning Comments: CM met with patient to complete initial dc planning assessment. CM educated patient on the CM role and verbal consent given by patient to complete assessment. Patient lives at home & her adult daughter and her family live with her. She stated that she was independent with her care. She discharged from [facility] last week and stated that her legs wouldn't work and that is why she came back. I encouraged her to consider Inpatient rehab, she had a CVA. She is agreeable to it, ARIK signed. At discharge patient plans to go to inpatient rehab at [facility] and feels this is a safe discharge. CM discussed availability of home health, rehab services, and medical equipment. Patient stated that she has a nebulizer and a O2 concentrator that she wears at home and at night when needed at 2L. She was mildly SOB when speaking with her and will need a walk test prior to DC to see if she needs portable O2. ARIK signed for [facility] [place]. She stated that she does not have any other DME. [facility] served and explained. Patient denied known discharge needs at this time. CM will continue to follow and will assist as needed with dc plans/needs. Circulation Supervisor: Lexis Dias DCPIA - Discharge Planning Initial Assessment Updated by [email or web address]: Lexis Dias on 04/03/20 1:05 pm * Is the patient Alert and Oriented? Yes * How many steps to enter\exit or inside your home? * PCP MARYSE * Pharmacy [facility] * Preadmission Environment Home with Family * ADLs Independent * Equipment Nebulizer None Ostomy Supplies Other Oxygen * Other Equipment PATIENT HAS O2 CONCENTRATOR ONLY NO PORTABLE * List name and contact numbers for known caregivers / representatives who currently or will assist patient after discharge: NOVEMBER (DAUGHTER) [phone] * Verbal permission to speak to the caregivers and representatives has been obtained from the patient. N/A * Community resources currently utilized None * Additional services required to return to the preadmission environment? Yes * Can the patient safely return to the preadmission environment? No * Has this patient been hospitalized within the prior 30 days at any hospital? Yes Coverage Notice Reviewer: [id number] Ana Dias Notice Issued Date-Time: 04/03/2020 12:55 Notice Type: IM Discharge Notice Notice Delivered To: Patient Relationship to Patient: Pluck Trimmer Name: Delivery Method: HAND - Hand Delivered Amy Days: Prior Verbal Notification: Recipient Understood Notice: Yes Recipient Signature: Yes Med Rec Note Co-signed by Attending: Coverage Notice Comment: IMM SERVED AND EXPLAINED Reviewer: [id number] Ana Dias Notice Issued Date-Time: 04/03/2020 12:55 Notice Type: Patient Choice Letter Notice Delivered To: Patient Relationship to Patient: Pluck Trimmer Name: Delivery Method: HAND - Hand Delivered Amy Days: Prior Verbal Notification: Recipient Understood Notice: Yes Recipient Signature: Yes Med Rec Note Co-signed by Attending: Coverage Notice Comment: ARIK WITH INPATIENT REHAB AT [facility] Last DP export: 04/03/20 12:16 p Patient Name: ZHANG BOWMAN Page [id number] at 1513 All edits/amendments must be made on the electronic document DICTATION DATE: 04/05/20 151 WEEKEND RECEPTIONIST: KEVIN 04/05/20 151 RPT#: [id number] DC DATE:04/03/20 STATUS: DIS IN [facility] [address] [place] [address] END OF REPORT
== END 2020-04-03 17:44 | DRG 690 ==
LOC: D.ER 23:19 → OBSVTIME 03-30 00:50 → D.MS 03-30 00:50
PROVIDERS: Family Medicine; ADMIT Family Medicine; ATTEND Family Medicine
DX: N39.0 Urinary tract infection, site not specified (principal); E87.1 Hypo-osmolality and hyponatremia; J98.11 Atelectasis; N17.9 Acute kidney failure, unspecified; R26.9 Unspecified abnormalities of gait and mobility; E78.5 Hyperlipidemia, unspecified; J44.9 Chronic obstructive pulmonary disease, unspecified; B37.2 Candidiasis of skin and nail; E11.40 Type 2 diabetes mellitus with diabetic neuropathy, unspecified; G89.29 Other chronic pain; M54.9 Dorsalgia, unspecified; E11.22 Type 2 diabetes mellitus with diabetic chronic kidney disease; I12.9 Hypertensive chronic kidney disease with stage 1 through stage 4 chronic kidney disease, or unspecified chronic kidney disease; N18.3 Chronic kidney disease, stage 3 (moderate); Z86.73 Personal history of transient ischemic attack (TIA), and cerebral infarction without residual deficits

== ENCOUNTER 2020-04-03 17:40 | Inpatient (IN) | payer MEDICARE ==
[~2020-04-03] VITALS: Ht 160 cm; Wt 77.6 kg
--- NOTE | ~2020-04-03 | RHP ---
PATIENT: ZHANG BOWMAN MEDICAL RECORD: [id number] ACCOUNT: [id number] LOCATION:[facility] [address] : [birth year] ADMISSION DATE: 04/03/20 REHABILITATION HISTORY AND PHYSICAL EXAMINATION POST ADMISSION PHYSICIAN EXAMINATION DATE OF ADMISSION: 04/03/2020 ADMITTING DIAGNOSIS: Cerebrovascular accident. HISTORY OF PRESENT ILLNESS: The patient was admitted to rehab with a right lacunar thalamic infarct. She is a 70-year-old female patient who presented with hypertension, hyperlipidemia, COPD and O2 dependence at times. The patient has chronic back pain. She recently suffered a right lacunar thalamic infarct with hypertensive emergency, was hospitalized here from 03/19/2020 to 03/22/2020, she refused to come to inpatient rehab. Seen by neurology, Dr. Contreras. During that stay, it was felt likely that she would have a recurrent infarct as well as some problems with monoparesis. She was back to the ED on 03/30/2020 with complaints of weakness, gait instability, associated dizziness, and legs gave out over time. She was admitted with UTI. She had Klebsiella pneumonia, gait instability, recent CVA, and normocytic anemia. She had been participating with PT and OT during her stay and been progressing well. She is being monitored closely for blood sugars, any signs of infection. She is on IV antibiotic therapy. She is on electrolyte protocol, watching her for any neurological signs with recent CVA. She is also on monitoring her O2 levels with supplemental O2. She is on anticoagulation therapy. She has proximal muscle weakness, balance deficits, decreased activity tolerance, impaired mobility, decreased range of motion, decreased strength, gait disturbance, limited safety awareness, medical complexity, and risk for falls. These are all barriers to her discharge home at this time. She lives at home with her daughter and her daughter's family. She was independent with her ADLs and mobility prior to this. Currently, she set up for mod assist for ADLs and mod assist for mobility. She and her family would like to return home at her prior level of functioning. COMORBIDITIES: In this patient include weakness, diabetic neuropathy, normocytic anemia, UTI, gait instability, candidiasis, acute kidney injury, COPD, dyslipidemia. She got a history of cervical cancer and chronic back pain. PAST MEDICAL HISTORY: Significant for CVA, diabetes, dyslipidemia, home O2 use, COPD, cervical cancer, acid reflux, chronic back pain, fungal infection. PAST SURGICAL HISTORY: Includes a hysterectomy and also back surgery. ALLERGIES: No known drug allergies. CURRENT MEDICATIONS: Include metoprolol 50 mg daily. She is on Plavix 75 mg daily, atorvastatin 40 mg daily, amlodipine 10 mg daily, glyburide 5 mg b.i.d., zolpidem 10 mg at bedtime, Nystatin powder to apply as needed. She is on low resistant sliding scale insulin and also with blood sugar replacement. She is on Ventolin updrafts. She is on hydralazine 50 mg t.i.d. p.r.n. elevated blood pressure on the hypertensive protocol and polyethylene glycol 17 grams in 8 ounces of water daily. HABITS: No recent alcohol or tobacco use. Did smoke back in the day. HISTORY AND PHYSICAL [id number] ZHANG BOWMAN FAMILY HISTORY: Noncontributory. SOCIAL HISTORY: The patient hopes to return back home and get back to her prior level of functioning. REVIEW OF SYSTEMS: GENERAL: Does complain of weakness, mainly on one side. HEENT: Denies cold, cough, or congestion. CARDIOVASCULAR: Denies any chest pain. PHYSICAL EXAMINATION: VITAL SIGNS: Stable, afebrile. GENERAL: A well-developed elderly female, in no acute distress, alert upon exam. HEENT: Normocephalic and atraumatic. Mucosa moist. NECK: Supple. No lymphadenopathy. LUNGS: Clear at this time. No wheeze or rales. HEART: Regular rate and rhythm. No murmurs, rubs or gallops. ABDOMEN: Soft, benign, and nondistended. Positive bowel sounds times 4. EXTREMITIES: No clubbing, cyanosis or edema. NEUROLOGIC: She does have a little bit of weakness in her lower extremity on the left. LABORATORY DATA: White count 6.6, H&H 9.9 and 31, and platelet count is 215. Sodium 138, potassium 4.3, BUN and creatinine of 35 and 1.8, and blood sugar is noted to be 156. ASSESSMENT: This is a 69-year-old female patient admitted to rehab with a working diagnosis of cerebrovascular accident with failed outpatient therapy. The patient has potential to make improvement. We instituted the following multidisciplinary therapies including, but not limited to physical, occupational, respiratory, speech, nutritional services, prosthetics and orthotics. Given her complex medical condition and risks for more complications, rehabilitation services cannot be provided at a low level of care such as skilled nurse facility. PLAN: [facility]. [facility] to include the following disciplines; A. Physical therapy to improve gait, all transfer skills and bed mobility to a modified independent level. B. Occupational therapy to improve activities of daily living. C. Case management to help with discharge planning and placement options. D. Nutrition to assist with nutritional needs. E. Rehabilitation nursing to assist in monitoring the patient's underlying medical conditions and to assist with any type of bowel or bladder management. 2. I am going to go ahead and check a vitamin D and also an A1c on her. We will follow up this lab work. We are going to discuss about her in care team today at noon and I will make any adjustments as needed. TRANSINT:[id number] Voice Confirmation ID: [id number] DOCUMENT ID: [id number] POLO notes whether there has been none or any medical/functional HISTORY AND PHYSICAL [id number] ZHANG BOWMAN change since admission: - No change since preadmission screen. POLO attests patient continues to be appropriate for IRF: - Continues to be appropriate. MAGUI SERRA MD CC: [id number] DICTATION DATE: 04/04/20906 WORKFORCE PLANNER: 04/04/20 1136 ADM IN [facility] [address] [place] [address]
[~2020-04-03 17:40] MED LIST changes: +HUMALOG 30100 UNITS/ SC; +IPRAT-ALBUT 0.5-3 ML INH
--- NOTE | 2020-04-03 17:44 | NUR ---
PT RESTING IN BED WITH EYES OPEN CALL LIGHT IN REACH WILL MONITER
--- NOTE | 2020-04-03 19:37 | NUR ---
ADMIT THIS PATIENT FOR PHYSICAL REHAB AND SERVICES OF DR SERRA. AWAKE AND ALERT. RESPIRATIONS UNLABORED. SEE ADMISSION ASSESSMENT. TOOK ADMISSION PAPERWORK/CONSENTS IN FOR PATIENT TO SIGN. PATIENTED YELLED AT NURSE "I'VE ALREADY SIGNED THESE PAPERS!' I EXPLANED THAT THESE WERE PAPERS FOR CONDITIONS OF ADMISSIONS, CONSENTS FOR REHAB AND NOT THE MEDICAL FLOOR. PATIENT PERSISTED " I KNOW WHAT I SIGNED. I SIGNED THEM BEFORE I CAME DOWN HERE AND THE NURSE GAVE THEM TO THE NURSE AT THEM DESK WHEN SHE BROUGHT ME DOWN HERE!" I OFFERED THAT PERHAPS THOSE WERE DISCHARGE PAPERS FROM THE MEDICAL FLOOR AND SHE BECAME ANGRY AND RAISEDED HER VOICE AGAIN AND SAID "NO THEY WERE NOT DISCHARGE PAPERS! THEY WERE PAPERS FOR HERE.!" I INFORMED HER I WOULD CHECK HER CHART TO MAKE SURE THE PAPERS WERE NOT ALREADY SIGNED AND IN HER CHART. I CHECKED HER CHART AND NO REHAB CONSENTS, OR ADMISSION PAPERWORK WAS SIGNED. I INFORMED THE PATIENT OF THIS. SHE STATES" FINE! I WILL SIGN THESE BUT I KNOW I ALREADY DID IT ONCE."
[2020-04-03 19:57] VITALS: BP 119/66; BP 140/62
[2020-04-03 20:57] VITALS: BP 140/62; BMI 30.3
--- NOTE | 2020-04-04 00:50 | NUR ---
RESTING QUIETLY WITH NO DISTRESS NOTED.
--- NOTE | 2020-04-04 05:14 | NUR ---
QUIET HOURS. NO ACUTE CHANGES IN CONDITION THIS SHIFT. RESTING IN BED WITH NO DISTRESS NOTED.
[2020-04-04 06:29] LABS: ANION GAP 12.3 mmol/L (8-16); CALCIUM 8.4 mg/dL (8.5-10.1); CREATININE - SERUM 1.8 mg/dL (0.6-1.3); POTASSIUM - SERUM 4.3 mmol/L (3.5-5.1)
[2020-04-04 06:36] LABS: BASOPHILS 0.3 % (0-2); EOSINOPHILS 4.1 % (0-7); HEMOGLOBIN 9.9 g/dL (12-16); IMMATURE GRANULOCYTES 0.5 % (0-5); MCH 27.7 pg (26.0-34.0); MCHC 31.9 g/dL (31.0-37.0); MCV 86.8 fL (80.0-100.0); MEAN PLATELET VOLUME 9.4 fL (7.4-10.4); MONOCYTES 8.2 % (2-11); NEUTROPHILS 64.9 % (40-80); PLATELET COUNT 215 10x3/uL (130-400); RBC 3.57 10x6/uL (4.00-5.40)
[2020-04-04 06:42] LABS: WBC 6.6 10x3/uL (4.8-10.8)
--- NOTE | 2020-04-04 07:24 | NUR ---
PT RESTING IN BED WITH EYES OPEN CALL LIGHT IN REACH WILL MONITER
[2020-04-04 11:04] VITALS: Ht 160 cm; Wt 77.6 kg
--- NOTE | 2020-04-04 12:39 | NUR ---
I have reviewed this patient and I concur with the Shift Assessment completed by the Licensed Practical Nurse today this shift.
--- NOTE | 2020-04-04 17:26 | NUR ---
PT RESTING IN BED WITH EYES OPEN CALL LIGHT IN REACH WILL MONITER
[2020-04-04 20:10] VITALS: BP 178/75
--- NOTE | 2020-04-04 20:10 | NUR ---
ASSESSMENT PER FLOW SHEET, VS OBTAINED, PT REPORTS FLATUS, BM TODAY AND VOIDING WITH NO DIFFICULTY, PT DENIES NEEDS OR PAIN AT THIS TIME
--- NOTE | 2020-04-04 21:49 | NUR ---
PT AWAKE, OBTAINED FSBS, AND 2100 MEDS PER MD ORDERS, SEE EMAR, JONNY CRACKERS SERVED PER REQUEST FOR SNACK, PT DENIES FURTHER NEEDS
--- NOTE | 2020-04-04 23:00 | NUR ---
PT RESTING WITH EYES CLOSED, RESP QUIET, NO DISTRESS NOTED, LEFT UNDISTURBED AT THIS TIME
--- NOTE | 2020-04-05 00:40 | NUR ---
PT RESTING WITH EYES CLOSED, RESP QUIET, NO DISTRESS NOTED, LEFT UNDISTURBED AT THIS TIME
--- NOTE | 2020-04-05 02:43 | NUR ---
PT RESTING WITH EYES CLOSED, RESP QUIET, NO DISTRESS NOTED, LEFT UNDISTURBED AT THIS TIME, FALL PRECAUTIONS IN PLACE
--- NOTE | 2020-04-05 04:30 | NUR ---
UPON ENTERING ROOM, PT IS GETTING BACK INTO BED, REPORTS GETTING UP TO VOID, DENIES NEEDS OR PAIN AT THIS TIME
--- NOTE | 2020-04-05 07:07 | NUR ---
PT AWAKE, OBTAINED FSBS, ADM 0700 INSULIN PER MD ORDERS, SEE EMAR, PT DENIES NEEDS OR PAIN AT THIS TIME
--- NOTE | 2020-04-05 08:00 | NUR ---
UP IN W/C WITH THERAPY EATING BREAKFAST, DENIES ANY NEEDS AT THIS TIME, C/L AND FLUIDS IN REACH.
[2020-04-05 09:42] VITALS: BP 165/71
--- NOTE | 2020-04-05 11:03 | NUR ---
PATIENT ADMITTED TO REHAB FROM ACUTE FLOOR. HER PCP IS DR. SERRA, DME AT HOME IS A NEBULIZER AND O2. PATIENT LIVES WITH HER DAUGHTER. DISCHARGE PLANS ARE FOR HER TO RETURN TO HER HOME. WILL CONTINUE TO FOLLOW WITH PATIENT.
--- NOTE | 2020-04-05 11:41 | NUR ---
PATIENT IS DEMANDING TO GO HOME. SHE HAS DECLINED HOME HEALTH OR ANY NEEDS. DR. SERRA/JOSSY LE 04/11/20 @ 2:15. ARIK SIGNED, IMM SERVED AND EXPLAINED, ONE GIVEN TO PATIENT AND ONE FILED IN CHART. DISCHARGE INSTRUCTIONS FAXED TO PCP AND REVIEWED WITH PATIENT PER PRIMARY NURSE.
--- NOTE | 2020-04-05 12:22 | NUR ---
SITTING UP IN BED EATING LUNCH, DENIES ANY NEEDS AT THIS TIME, C/L AND FLUIDS IN REACH.
--- NOTE | 2020-04-05 14:00 | NUR ---
PATIENT D/C TO HOME WITH FAMILY VIA W/C. PT. HAS ALL BELONGINGS WITH THEM. REVIEWED MEDICATIONS AND CALLED INTO PHARMACY. INFORMED OF FOLLOW UP APPOINTMENT. DECLINED ANY HOME HEALTH CARE.
== END 2020-04-05 14:00 | disposition home or self-care (01) | DRG 57 ==
LOC: D.REHAB 17:40
PROVIDERS: ADMIT Emergency Medicine; ATTEND Emergency Medicine
DX: I69.30 Unspecified sequelae of cerebral infarction (principal); N39.0 Urinary tract infection, site not specified; J98.11 Atelectasis; N17.9 Acute kidney failure, unspecified; E87.1 Hypo-osmolality and hyponatremia; E11.40 Type 2 diabetes mellitus with diabetic neuropathy, unspecified; D64.9 Anemia, unspecified; R53.1 Weakness; R26.9 Unspecified abnormalities of gait and mobility; I12.9 Hypertensive chronic kidney disease with stage 1 through stage 4 chronic kidney disease, or unspecified chronic kidney disease; E11.22 Type 2 diabetes mellitus with diabetic chronic kidney disease; N18.3 Chronic kidney disease, stage 3 (moderate); G89.29 Other chronic pain; B37.9 Candidiasis, unspecified; E78.5 Hyperlipidemia, unspecified; Z85.41 Personal history of malignant neoplasm of cervix uteri